=== PATIENT | male | born 1965 | race Caucasian/White ===

== ENCOUNTER 2020-03-27 08:46 | Observation (INO) | payer OTHER ==
[2020-03-27] MEDS ORDERED: SODIUM CHLORIDE 0.9% 1,000 ML IV STA (09:08)
[2020-03-27] MEDS ORDERED: LABETALOL 5 MG/ML VIAL MDV IVP STA (09:08)
--- NOTE | 2020-03-27 09:11 | ED ---
General Adult HPI - General Chief complaint: Dizziness Stated complaint: dizzy,not feeling right Time Seen by Provider: 03/27/20 08:53 Source: patient Mode of arrival: wheelchair Limitations: no limitations - History of Present Illness Initial comments: Dictation was produced using [employer] dictation software. please excuse any grammatical, word or spelling errors. This patient was cared for during a federal and state declared state of emergency secondary to Covid 19 Chief Complaint: 54-year-old male presents with dizziness. History of Present Illness: 54-year-old male who presents today with dizziness. Patient states that he has a history of hypertension. He was prescribed antihypertensive medications several months ago however he does not take them. Patient states that last night he was over at a friend's house and had several cocktails. Patient states that on his way home he felt very dizzy. He woke this morning his dizziness has improved. Denies any neurologic deficits. No numbness and paresthesias to the arms or legs. He denies any pain complaints. Denies any headaches. Denies any fever, coughs or chills. Denies sensation of the room spinning. His dizziness is constant. Denies any shortness of breath. No vomiting. The ROS documented in this emergency department record has been reviewed and confirmed by me. Those systems with pertinent positive or negative responses have been documented in the HPI. All other systems are other negative and/or noncontributory. PHYSICAL EXAM: General Impression: Alert and oriented x3, not in acute distress HEENT: Normocephalic atraumatic, extra-ocular movements intact, pupils equal and reactive to light bilaterally, mucous membranes moist. Cardiovascular: Heart regular rate and rhythm Chest: Able to complete full sentences, no retractions, no tachypnea, bilateral breath sounds Abdomen: abdomen soft, non-tender, non-distended, no organomegaly Musculoskeletal: Pulses present and equal in all extremities, no peripheral edema Motor: no focal deficits noted Neurological: CN II-XII grossly intact, no focal motor or sensory deficits noted Skin: Intact with no visualized rashes Psych: Normal affect and mood ED course: 54 y Old male presents with dizziness. Patient had several alcoholic beverages last night before the onset of his symptoms. As upon arrival shows blood pressure of 241/137, rest of vital signs within acceptable limits. Clinical presentation concerning for symptomatic hypertension. Patient is given labetalol IV push. Laboratory evaluation was obtained. Results were reviewed during EMR down time. CT and chest x-ray are unremarkable. Patient reevaluated at bedside and found to be stable medical condition. Clinical presentation consistent with hypertensive urgency. Patient doesn't report that he feels better however still kind of dizzy. Clinical presentation consistent with symptomatic hypertension. started hydrochl orothiazide. He does have orders for when necessary labetalol. Case discussed with Dr. Marshall who willing to accept patient. EKG interpretation: Ventricular rate 100, normal sinus rhythm,. 162, QRS 128, QTC 492. No [place] prolongation, no QTC prolongation, no ST or T-wave changes noted. No old EKG for comparison Overall, this EKG is unremarkable - Related Data Home Medications Medication Instructions Recorded Confirmed No Known Home Medications 03/27/20 03/27/20 Allergies Allergy/AdvReac Type Severity Reaction Status Date / Time No Known Allergies Allergy Verified 03/27/20 12:19 Review of Systems ROS Statement: Those systems with pertinent positive or pertinent negative responses have been documented in the HPI. ROS Other: All systems not noted in ROS Statement are negative. Past Medical History Past Medical History: Hypertension Past Surgical History: Ear Surgery, Tonsillectomy Past Psychological History: No Psychological Hx Reported Smoking Status: Never smoker Past Alcohol Use History: Daily Past Drug Use History: Marijuana General Exam Limitations: no limitations Course Vital Signs 03/27/20 08:46 Temperature 97.5 F L Pulse Rate 108 H Respiratory 18 Rate Blood Pressure 241/137 O2 Sat by Pulse 97 Oximetry Disposition Clinical Impression: Hypertensive urgency Disposition: ADMITTED IP TO THIS [facility] Condition: Fair Referrals: None,Stated [Primary Care Provider] - 1-2 days Decision Time: 12:27
--- NOTE | 2020-03-27 09:45 | CT ---
EXAMINATION TYPE: CT brain wo con DATE OF EXAM: 03/27/2020 COMPARISON: None INDICATION: Dizziness, HTN DLP: 1162.4 mGycm, Automated exposure control for dose reduction was used. CONTRAST: None CT of the brain is performed utilizing 3 mm thick sections through the posterior fossa and 3 mm thick sections through the remaining calvarium. Study is performed within 24 hours of arrival to the hosp ital. No abnormal hyperdensity is present to suggest an acute intracranial hemorrhage. No mass lesion is evident. No acute infarcts are evident. Mild patchy hypodensities in the periventricular white matter, likely on the basis of chronic white matter ischemic changes. Ventricles and sulci are appropriate for the patient age. Paranasal sinuses and mastoid air cells within the [id number] are clear. IMPRESSIONS: 1. Mild chronic appearing periventricular white matter ischemic changes. 2. No acute intracranial process.
--- NOTE | 2020-03-27 10:10 | XR ---
EXAMINATION TYPE: XR chest 1V DATE OF EXAM: 03/27/2020 COMPARISON: None INDICATION: Dizzy TECHNIQUE: Single frontal view of the chest is obtained. FINDINGS: The heart size is moderately prominent. The pulmonary vasculature is normal. The lungs are clear. IMPRESSION: 1. Cardiomegaly. 2. No acute pulmonary process.
[2020-03-27] MEDS ORDERED: SODIUM CHLORIDE 0.9% 1,000 ML BAG ONE (12:28)
[2020-03-27] MEDS ORDERED: LABETALOL 5 MG/ML VIAL MDV ONE (12:28)
[2020-03-27] MEDS ORDERED: SODIUM CHLORIDE 0.9% 1,000 ML IV SCH (12:30)
[2020-03-27 12:50] LABS: ALT 26 U/L (4-49); AST 32 U/L (17-59); African American GFR (CKD) >90 (>60 ml/min/1.73 sqM); Albumin 4.8 g/dL (3.5-5.0); Alcohol <10 mg/dL; Alkaline Phosphatase 98 U/L (38-126); Anion Gap 11 mmol/L; Blood Urea Nitrogen 13 mg/dL (9-20); Calcium 9.4 mg/dL (8.4-10.2); Carbon Dioxide 25 mmol/L (22-30); Chloride 101 mmol/L (98-107); Glucose 143 mg/dL (74-99); Magnesium 2.1 mg/dL (1.6-2.3); Non-African American GFR(CKD) >90 (>60 ml/min/1.73 sqM); Potassium 4.1 mmol/L (3.5-5.1); Sodium 137 mmol/L (137-145); Total Bilirubin 0.7 mg/dL (0.2-1.3); Total Protein 7.5 g/dL (6.3-8.2)
[2020-03-27 14:02] LABS: Basophils # (A) 0.1 k/uL (0-0.2); Basophils % (A) 1 %; Eosinophils # (A) 0.2 k/uL (0-0.7); Eosinophils % (A) 2 %; HCT 50.5 % (39.0-53.0); HGB 17.5 gm/dL (13.0-17.5); Lymphocytes # (A) 2.4 k/uL (1.0-4.8); Lymphocytes % (A) 25 %; MCH 31.3 pg (25.0-35.0); MCHC 34.6 g/dL (31.0-37.0); MCV 90.6 fL (80.0-100.0); Monocytes # (A) 0.6 k/uL (0-1.0); Monocytes % (A) 6 %; Neutrophils % (A) 64 %; Platelet Count 264 k/uL (150-450); RBC 5.57 m/uL (4.30-5.90); RDW 13.6 % (11.5-15.5); WBC 9.5 k/uL (3.8-10.6)
[2020-03-27 14:04] LABS: Prothrombin Time 10.4 sec (9.0-12.0)
[2020-03-27] MEDS ORDERED: hydroCHLOROthiazide 25 MG TAB PO ONE (14:30)
--- NOTE | 2020-03-27 18:20 | P.HPIM ---
History of Present Illness H&P Date: 03/27/20 Chief Complaint: Hypertensive urgency 54-year-old male with PMH of hypertension presents the ED for double vision. Patient reports having some cocktails last night and going to sleep. He woke up this morning with double vision. Patient reports horizontal double vision. P atient realizes that this might be related to his blood pressure which prompted him to come to the ED. He was diagnosed with hypertension in 2016 and was started on unknown antihypertensive medication. He stopped taking his medication 1-1/2 years ago. Patient denies any headache, lower extremity edema, nausea or vomiting, fever or chills, cough, chest pain, shortness of breath, palpitations, changes in urination or bowel habits. No changes in appetite or weight. He denies any dizziness, numbness/weakness/tingling of the extremities. In the ED, his blood pressure was 241/137. CBC was unremarkable. INR was negative. CMP was negative except glucose of 143. Troponin was 0.014, EKG show ing normal sinus rhythm. Serum alcohol was negative. Chest x-ray was negative. Brain CT showed no acute intracranial process. Patient is admitted for hypertensive urgency. Review of Systems Pertinent positives and negatives as discussed in HPI, a complete review of systems was performed and all other systems are negative. Past Medical History Past Medical History: Hypertension Additional Past Medical History / Comment(s): Past cellulitis bilateral legs History of Any Multi-Drug Resistant Organisms: None Reported Past Surgical History: Ear Surgery, Tonsillectomy Additional Past Surgical History / Comment(s): Bilateral myringotomies/tubes Past Anesthesia/Blood Transfusion Reactions: No Reported Reaction Smoking Status: Never smoker - Past Family History Father Family Medical History: Dementia Mother Family Medical History: CVA/TIA Additional Family Medical History / Comment(s): Mother is . She had TIAs. Medications and Allergies Home Medications Medication Instructions Recorded Confirmed Type No Known Home Medications 03/27/20 03/27/20 History Allergies Allergy/AdvReac Type Severity Reaction Status Date / Time No Known Allergies Allergy Verified 03/27/20 12:19 Physical Exam Vitals: Vital Signs Temp Pulse Resp BP Pulse Ox 03/27/20 14:42 95 18 189/132 96 03/27/20 14:00 18 96 03/27/20 13:00 95 18 189/132 96 03/27/20 12:00 95 18 96 03/27/20 11:52 95 18 178/121 96 03/27/20 10:52 99 18 183/124 96 03/27/20 09:52 96 18 189/125 96 03/27/20 08:52 98 18 195/123 96 03/27/20 08:46 97.5 F L 108 H 18 241/137 97 Intake and Output 03/27/20 03/27/20 03/27/20 06:59 14:59 22:59 Other: Weight 140.614 kg General: [non toxic], [no distress], [appears at stated age] Derm: [warm], [dry] Head: [atraumatic], [normocephalic], [symmetric] Eyes: [EOMI], [no lid lag], [anicteric sclera] Mouth: [no lip lesion], [mucus membranes moist] Cardiovascular: [S1S2 reg], [no murmur], [positive posterior tibial pulse bilateral], Lungs: [CTA bilateral], [no rhonchi, no rales] , [no accessory muscle use] Abdominal: [soft], [ nontender to palpation], [no guarding], [no appreciable organomegaly] Ext: [no gross muscle atrophy], [no edema], [no contractures] Neuro: [ CN II-XI grossly intact], [no focal neuro deficits] Psych: [Alert], [oriented], [appropriate affect] Results CBC & Chem 7: 03/27/20 09:04 03/27/20 09:04 Labs: Abnormal Lab Results - Last 24 Hours (Table) 03/27/20 Range/Units 09:04 Glucose 143 H (74-99) mg/dL Thrombosis Risk Factor Assmnt - Choose All That Apply Any of the Below Risk Factors Present?: Yes Each Factor Represents 1 point: Age 41-60 years, Obesity (BMI >25) Other Risk Factors: No Other congenital or acquired thrombophilia - If yes, enter type in comment: No Thrombosis Risk Factor Assessment Total Risk Factor Score: 2 Thrombosis Risk Factor Assessment Level: Low Risk Assessment and Plan Assessment: Hypertensive urgency Double vision Hyperglycemia History of alcohol use Patient's initial blood pressure was 241/137. His blood pressure has improved to 170s over 130s. He was given labetalol 20 mg IV in the ED. He'll be started on hydrochlorothiazide, lisinopril and Coreg. Labetalol is ordered as needed for SBP greater than 180. He will be placed on telemetry monitoring and echoc ardiogram has been ordered for tomorrow morning. His double vision is likely related to his elevated blood pressures. I anticipate his vision to improve with better blood pressure control. Consider ophthalmology consultation if continued tomorrow morning. Patient has blood glucose of 143 nonfasting which will be monitored at this time. Patient reports drinking 2-3 times a week. He denies any alcohol withdrawal symptoms will continue to monitor for any signs of withdrawal. DVT prophylaxis: [SCD boots] Discussed with: [Patient] Anticipated discharge: [1-2 days] Anticipated discharge place: [Home] A total of [35] minutes was spent on the care of this complex patient more than 50% of the time was spent in counseling and care coordination. Patient names his sister Kimberlyn decision maker if he can't make decisions for himself. Patient would like to be full code.
[2020-03-27] MEDS ORDERED: carvediloL 12.5 MG TAB PO SCH (20:00)
[2020-03-27] MEDS ORDERED: ACETAMINOPHEN TAB 325 MG TAB PO PRN ×2 (21:14→23:00)
[2020-03-27] MEDS ORDERED: NALOXONE 0.4 MG/ML 1 ML VIAL IV PRN ×2 (21:15→23:00)
[2020-03-27] MEDS ORDERED: oxyCODONE-APAP 5-325MG 1 EACH TAB PO PRN ×2 (21:16→23:00)
[2020-03-27] MEDS ORDERED: lisinopriL 10 MG TAB PO SCH (21:30)
[2020-03-27] MEDS ORDERED: LABETALOL 5 MG/ML VIAL MDV IVP PRN (23:00)
[2020-03-28 03:38] LABS: HCT 45.9 % (39.0-53.0); HGB 15.7 gm/dL (13.0-17.5); MCH 31.5 pg (25.0-35.0); MCHC 34.2 g/dL (31.0-37.0); MCV 92.3 fL (80.0-100.0); Mean Platelet Volume 7.8; Platelet Count 243 k/uL (150-450); RBC 4.98 m/uL (4.30-5.90); RDW 13.7 % (11.5-15.5); WBC 9.6 k/uL (3.8-10.6)
[2020-03-28] MEDS: LABETALOL 5 MG/ML VIAL MDV IV PRN ×2 (03:50→11:47)
[2020-03-28] MEDS: SODIUM CHLORIDE 0.9% 1,000 ML IV SCH ×2 (06:31→20:31)
[2020-03-28] MEDS: carvediloL 12.5 MG TAB PO SCH ×3 (06:32→17:12)
[2020-03-28] MEDS: hydroCHLOROthiazide 25 MG TAB PO SCH (08:27)
[2020-03-28] MEDS ORDERED: lisinopriL 10 MG TAB PO SCH (09:00)
[2020-03-28] MEDS ORDERED: hydroCHLOROthiazide 25 MG TAB PO SCH (09:00)
--- NOTE | 2020-03-28 11:00 | ECHOF ---
Referral Reason:HTN urgency MEASUREMENTS -------- HEIGHT: 180.3 cm WEIGHT: 140.6 kg BP: 145/77 RVIDd: 3.6 cm (< 3.3) IVSd: 1.9 cm (0.6 - 1.1) LVIDd: 4.9 cm (3.9 - 5.3) LVPWd: 1.7 cm (0.6 - 1.1) IVSs: 2.3 cm LVIDs: 3.8 cm LVPWs: 2.0 cm LA Diam: 3.5 cm (2.7 - 3.8) LAESV Index (A-L): 25.70 ml/m Ao Diam: 4.1 cm (2.0 - 3.7) AV Cusp: 2.6 cm (1.5 - 2.6) MV EXCURSION: 14.837 mm (> 18.000) MV EF SLOPE: 55 mm/s (70 - 150) EPSS: 1.1 cm MV E Aleks: 0.99 m/s MV DecT: 190 ms MV A Aleks: 0.82 m/s MV E/A Ratio: 1.21 FINDINGS -------- Sinus rhythm. This was a technically adequate study. The left ventricular size is normal. There is severe concentric left ventricular hypertrophy. Ove rall left ventricular systolic function is normal with, an EF between 55 - 60 %. The right ventricle is mildly enlarged. Normal LA size by volume 22+/-6 ml/m2. The right atrial size is normal. Interatrial and interventricular septum intact. The aortic valve is trileaflet, and appears structurally normal. No aortic stenosis or regurgitation. The mitral valve is normal. No mitral regurgitation. The tricuspid valve appears structurally normal. Trace tricuspid regurgitation present. The pulmonic valve was not well visualized. There is no pulmonic regurgitation present. The aortic root is dilated measuring 4.1cm. Normal inferior vena cava with normal inspiratory collapse consistent with estimated right atrial pre ssure of 5 mmHg. There is no pericardial effusion. CONCLUSIONS -------- 1. There is severe concentric left ventricular hypertrophy. 2. Overall left ventricular systolic function is normal with, an EF between 55 - 60 %. 3. The right ventricle is mildly enlarged. 4. Normal LA size by volume 22+/-6 ml/m2. 5. The aortic valve is trileaflet, and appears structurally normal. No aortic stenosis or regurgitati on. 6. The mitral valve is normal. 7. Trace tricuspid regurgitation present. 8. The aortic root is dilated measuring 4.1cm. 9. There is no pericardial effusion. BALLOON TESTER: Olivia Gutierrez RDCS
[2020-03-28] MEDS ORDERED: hydrALAZINE HCL 20 MG/ML 1 ML VIAL IVP PRN (12:23)
--- NOTE | 2020-03-28 12:27 | P.PN ---
Subjective Progress Note Date: 03/28/20 Patient is feeling well today. He said that his double vision has resolved. He denies any headache. Objective - Vital Signs Vital signs: Vital Signs Temp 97.7 F 03/28/20 11:46 Pulse 75 03/28/20 11:46 Resp 16 03/28/20 11:46 BP 182/104 03/28/20 11:46 Pulse Ox 98 03/28/20 11:46 Intake & Output 03/27/20 03/28/20 03/28/20 18:59 06:59 18:59 Intake Total 240 Balance 240 Weight 140.614 kg 140.4 kg Intake: Oral 240 Other: # Voids 1 1 - Exam General: The patient is awake and alert, in no distress Eye: there is normal conjunctiva bilaterally. Neck: The neck is supple, there is no JVD. Cardiovascular: Normal S1-S2, no S3-S4, no murmurs. Respiratory: Lungs clear to auscultation bilaterally Gastrointestinal: Abdomen is soft, nontender Musculoskeletal: There is no pedal edema. Neurological:. Speech is normal. Skin: Skin is warm and dry - Labs CBC & Chem 7: 03/28/20 03:00 03/27/20 09:04 Labs: Abnormal Lab Results - Last 24 Hours (Table) 03/27/20 Range/Units 09:04 Glucose 143 H (74-99) mg/dL Assessment and Plan Assessment: Hypertensive urgency Double vision, resolved. Computed tomography scan of the head with no acute intracranial finding Hyperglycemia History of alcohol use Patient's initial blood pressure was 241/137. Continue to have systolic blood pressure over 170 and diastolic over 100. Started on hydrochlorothiazide 25 mg daily, lisinopril 10 mg daily and Coreg 12.5 mg twice a day. Increase lisinopril dose to 10 mg twice a day and Coreg to 25 mg twice a day Patient has blood glucose of 143 nonfasting which will be monitored at this time. I would order A1c Patient reports drinking 2-3 times a week. He denies any alcohol withdrawal symptoms will continue to monitor for any signs of withdrawal. Continue current management otherwise. Anticipate discharge home tomorrow.
[2020-03-28] MEDS: lisinopriL 10 MG TAB PO SCH (20:31)
[2020-03-28 21:30] LABS: Hemoglobin A1C 6.2 % (4.0-6.0)
[2020-03-29] MEDS: carvediloL 12.5 MG TAB PO SCH (06:02)
[2020-03-29] MEDS: lisinopriL 10 MG TAB PO SCH (08:05)
[2020-03-29] MEDS: hydroCHLOROthiazide 25 MG TAB PO SCH (08:05)
--- NOTE | 2020-03-29 09:04 | P.DS ---
Providers Date of admission: 03/27/20 12:23 Expected date of discharge: 03/29/20 Attending physician: Mia Rivera DO Primary care physician: Stated None Hospital Course: This is a 54-year-old male who presented to the emergency room urgently with dizziness and double vision. Patient was evaluated in the ER and was found to have a blood pressure of 241/137. Patient was admitted to the hospital for further management of his medical problems noted below. -Hypertensive urgency: Blood pressure improved. Patient will be discharged home on Coreg 25 mg twice a day, lisinopril 10 mg twice daily, and hydrochlorothiazide 25 mg daily. He was advised to check his blood pressure up to 3 times a day. Follow-up with PCP in the next 3-5 days. -Double vision, resolved. Computed tomography scan of the head with no acute intracranial finding -Hyperglycemia with prediabetes, A1c 6.2: Counseled regarding lifestyle modification and exercise - History of alcohol use Patient will be discharged home in a stable condition. For further details about this hospitalization please refer to the electronic chart. Patient Condition at Discharge: Fair Plan - Discharge Summary Discharge Rx Participant: No New Discharge Prescriptions: New Carvedilol 25 mg PO BID #60 tablet Hydrochlorothiazide [Hydrodiuril] 25 mg PO DAILY #30 tab Lisinopril [Zestril] 10 mg PO BID #60 tab Discharge Medication List Carvedilol 25 mg PO BID #60 tablet 03/29/20 [Rx] Hydrochlorothiazide [Hydrodiuril] 25 mg PO DAILY #30 tab 03/29/20 [Rx] Lisinopril [Zestril] 10 mg PO BID #60 tab 03/29/20 [Rx] Follow up Appointment(s)/Referral(s): None,Stated [Primary Care Provider] - 1-2 days Discharge Disposition: HOME SELF-CARE
[2020-03-29 09:20] VITALS: PULSE 71; RESP 18; TEMP 97.7
[2020-03-29 10:16] VITALS: BP 152/95
== END 2020-03-29 13:08 | disposition home or self-care (01) ==
LOC: EC 08:46 → 3SCARD 12:23
PROVIDERS: ADMIT Internal Medicine; ATTEND Internal Medicine
DX: I16.0 Hypertensive urgency (principal); I11.9 Hypertensive heart disease without heart failure; R73.03 Prediabetes; E66.9 Obesity, unspecified; Z68.41 Body mass index [BMI] 40.0-44.9, adult; H53.2 Diplopia; Z03.818 Encounter for observation for suspected exposure to other biological agents ruled out; Z91.14 Patient's other noncompliance with medication regimen; Z86.19 Personal history of other infectious and parasitic diseases; Z82.3 Family history of stroke; Z81.8 Family history of other mental and behavioral disorders
CPT/HCPCS: 96376; 96374; 99285; 36415; 93005; 93306; 80053; 83735 ×2; 84484 ×2; 85025; 85027; 85610; 85730; 83036; 71045; 70450; G0378 ×3; G0480; U0003; 80320

== ENCOUNTER 2024-11-13 11:00 | Inpatient (IN) | payer OTHER ==
--- NOTE | 2024-11-13 11:42 | ED ---
Weakness HPI - General Source: patient, RN notes reviewed Mode of arrival: ambulatory Limitations: no limitations - History of Present Illness MD Complaint: generalized weakness Onset/Timin -: days(s) <Jagdish Perez - Last Filed: 11/13/24 13:49> <Anand Mullen - Last Filed: 11/18/24 03:28> - General Chief complaint: Weakness Stated complaint: high blood pressure Time Seen by Provider: 11/13/24 11:16 - History of Present Illness Initial comments: This is a 59-year-old male with history of hypertension presenting for elevated blood pressure and weakness x 3 days. Patient states he was originally seen at urgent care and advised to go to ER due to uncontrolled blood pressure. Patient endorses associated fatigue, dyspnea with exertion and poor sleep. Patient states he sleeps in a chair at night as well. States he is not currently taking any medication for hypertension. Denies history of AMI or CAD. Denies fever, chills, cough, chest pain, headache, hemoptysis, abdominal pain, N/V/D. (Jagdish Sidhu) - Related Data Previous Rx's Medication Instructions Recorded Aspirin 81 mg PO DAILY #30 tab 11/15/24 Atorvastatin [Lipitor] 80 mg PO HS #30 tab 11/15/24 Metoprolol Tartrate [Lopressor] 50 mg PO BID #60 tab 11/15/24 Spironolactone [Aldactone] 50 mg PO DAILY #60 tab 11/15/24 Ticagrelor [Brilinta] 90 mg PO BID #60 tab 11/15/24 glipiZIDE [Glucotrol] 2.5 mg PO AC-BID #60 tab 11/15/24 hydrALAZINE HCL [Apresoline] 100 mg PO TID #90 tab 11/15/24 lisinopriL [Zestril] 40 mg PO DAILY #60 tab 11/15/24 Allergies Allergy/AdvReac Type Severity Reaction Status Date / Time No Known Allergies Allergy Verified 11/13/24 13:07 Review of Systems ROS Other: All systems not noted in ROS Statement are negative. <Jagdish Perez - Last Filed: 11/13/24 13:49> ROS Other: All systems not noted in ROS Statement are negative. <Anand Mullen - Last Filed: 11/18/24 03:28> ROS Statement: Those systems with pertinent positive or pertinent negative responses have been documented in the HPI. Past Medical History Past Medical History: Hypertension Additional Past Medical History / Comment(s): Past cellulitis bilateral legs History of Any Multi-Drug Resistant Organisms: None Reported Past Surgical History: Ear Surgery, Tonsillectomy Additional Past Surgical History / Comment(s): Bilateral myringotomies/tubes Past Anesthesia/Blood Transfusion Reactions: No Reported Reaction Past Psychological History: No Psychological Hx Reported Past Alcohol Use History: Occasional Past Drug Use History: Marijuana - Past Family History Father Family Medical History: Dementia Mother Family Medical History: CVA/TIA Additional Family Medical History / Comment(s): Mother is . She had TIAs. <Jagdish Perez - Last Filed: 11/13/24 13:49> General Exam Limitations: no limitations General appearance: alert, in no apparent distress, obese Head exam: Present: atraumatic, normocephalic, normal inspection Eye exam: Present: normal appearance, PERRL, EOMI. Absent: scleral icterus, conjunctival injection, periorbital swelling ENT exam: Present: normal exam, normal oropharynx, mucous membranes moist Neck exam: Present: normal inspection. Absent: tenderness, meningismus, lymphadenopathy Respiratory exam: Present: decreased breath sounds. Absent: respiratory distress, wheezes, rales, rhonchi, stridor Cardiovascular Exam: Present: regular rate, normal rhythm, normal heart sounds. Absent: systolic murmur, diastolic murmur, rubs, gallop, clicks GI/Abdominal exam: Present: soft, normal bowel sounds. Absent: distended, tenderness, guarding, rebound, rigid Extremities exam: Present: full ROM, normal capillary refill, pedal edema (Bilateral pitting edema extending to knees), other (Bilateral posterior tibialis pulse +2). Absent: tenderness, joint swelling, calf tenderness Back exam: Present: normal inspection Neurological exam: Present: alert, oriented X3, CN II-XII intact Psychiatric exam: Present: normal affect, normal mood Skin exam: Present: warm, dry, intact, normal color. Absent: rash <Jagdish Perez - Last Filed: 11/13/24 13:49> Course <Jagdish Perez - Last Filed: 11/13/24 13:49> Vital Signs 11/13/24 11/13/24 11/13/24 11:09 11:59 12:43 Temperature 97.6 F Pulse Rate 94 95 109 H Respiratory 20 18 18 Rate Blood Pressure 248/138 204/136 206/119 O2 Sat by Pulse 98 98 98 Oximetry 11/13/24 11/13/24 11/13/24 13:42 14:12 14:36 Temperature Pulse Rate 110 H 103 H 103 H Respiratory 24 18 18 Rate Blood Pressure 199/114 179/108 197/103 O2 Sat by Pulse 99 98 Oximetry - Reevaluation(s) Reevaluation #1: Authorized for ICU admission by Dr. Negron 11/13/24 13:47 (Jagdish Perez) Medical Decision Making - Lab Data Result diagrams: 11/13/24 11:46 11/13/24 11:46 <Jagdish Perez - Last Filed: 11/13/24 13:49> - Lab Data Result diagrams: 11/14/24 05:30 11/15/24 05:31 - EKG Data -: EKG Interpreted by Me <Anand Mullen - Last Filed: 11/18/24 03:28> - Medical Decision Making Was pt. sent in by a medical professional or institution (, PA, VISUALIZATION DEVELOPER, urgent care, hospital, or assisted...) When possible be specific @ -No Did you speak to anyone other than the patient for history (EMS, parent, family, police, friend...)? What history was obtained from this source @ -No Did you review nursing and triage notes (agree or disagree)? Why? @ -I reviewed and agree with nursing and triage notes Were old charts reviewed (outside hosp., previous admission, EMS record, old EKG, old radiological studies, urgent care reports/EKG's, assisted records)? Report findings @ -No old charts were reviewed Differential Diagnosis (chest pain, altered mental status, abdominal pain women, abdominal pain men, vaginal bleeding, weakness, fever, dyspnea, syncope, head ache, dizziness, GI bleed, back pain, seizure, CVA, palpatations, mental health, musculoskeletal)? @ -Differential Weakness: Hypoglycemia, shock, sepsis, hyponatremia, anemia, infection, [place], ETOH, adverse medicine reaction, overdose, stroke, this is not meant to be an all-inclusive list. EKG interpreted by me (3pts min.). @ -Sinus rhythm with LAD, right ventricular conduction delay and possible inferior and anterolateral ST elevation. Ventricular rate 96 bpm, MAYLIN 191 ms, QRS duration 129 ms, QTc 436 ms. X-rays interpreted by me (1pt min.). @ -CXR shows mild bilateral plate atelectasis and cardiomegaly with indications of COPD. CT interpreted by me (1pt min.). @ -None done U/S interpreted by me (1pt. min.). @ -None done What testing was considered but not performed or refused? (CT, X-rays, U/S, labs)? Why? @ -None What meds were considered but not given or refused? Why? @ -None Did you discuss the management of the patient with other professionals (professionals i.e. , PA, VISUALIZATION DEVELOPER, lab, RT, psych nurse, social worker assistant, spring manufacturing set up technician, teacher, [place] police officer, showcase maker)? Give summary @ - Contacted Dr. Carnes, Dr. Gary who are aware of patient. Received approval by Dr. Hollis for ICU admission. Was smoking cessation discussed for >3mins.? @ -No Was critical care preformed (if so, how long)? @ -No Were there social determinants of health that impacted care today? How? (Homelessness, low income, unemployed, alcoholism, drug addiction, tr ansportation, low edu. Level, literacy, decrease access to med. care, group home, rehab)? @ -No Was there de-escalation of care discussed even if they declined (Discuss DNR or withdrawal of care, Hospice)? DNR status @ -No What co-morbidities impacted this encounter? (DM, HTN, Smoking, COPD, CAD, Cancer, CVA, ARF, Chemo, Hep., AIDS, mental health diagnosis, sleep apnea, morbid obesity)? @ -None Was patient admitted / discharged? Hospital course, mention meds given and route, prescriptions, significant lab abnormalities, going to OR and other pertinent info. @ -Lab work shows elevated troponin 1.130, BNP 1940 and hyperglycemia 152. Otherwise unremarkable with negative Cepheid test. CXR shows mild bilateral plate atelectasis and cardiomegaly with indications of COPD. Patient initially provided IV hydralazine for blood pressure. IV heparin, IV nitroglycerin and p.o. aspirin provided upon discovery of elevated troponin. Contacted Dr. Carnes, Dr. Gary who are aware of patient. Received approval by Dr. Hollis for ICU admission. Discussed patient with Dr. Mullen. Undiagnosed new problem with uncertain prognosis? @ -Elevated troponin Drug Therapy requiring intensive monitoring for toxicity (Heparin, Nitro, Insulin, Cardizem)? @ -No Were any procedures done? @ -No Diagnosis/symptom? @ -Elevated troponin, hypertensive emergency Acute, or Chronic, or Acute on Chronic? @ -Acute Uncomplicated (without systemic symptoms) or Complicated (systemic symptoms)? @ -Complicated Side effects of treatment? @ -No Exacerbation, Progression, or Severe Exacerbation? @ -Severe exacerbation Poses a threat to life or bodily function? How? (Chest pain, [place], [place], pneumonia, PE, COPD, DKA, ARF, appy, cholecystitis, CVA, Diverticulitis, Homicidal, Suicidal, threat to staff... and all critical care pts) @ -Elevated troponin, hypertensive emergency -heart failure and endorgan damage (Jagdish Perez) I was notified of the results with the patient. Initial EKG shows conduction delay. Was being seen by midlevel provider. Laboratory studies returned remarkable for troponin with 1.13. Patient's BNP slightly elevated to 1900. At this time I did instruct Vik the midlevel provider to initiate the patient on antihypertensive medication, administer aspirin, and obtain a repeat EKG. We also initiate heparin therapy at this time. Repeat EKG shows worsening ST segment elevations in the lateral precordial leads and inferior somewhat. No reciprocal changes. I do not believe this meet STEMI criteria at this time. I did discuss the case with cardiology Dr. Gary who did review the EKGs and was in agreement this plan and was in agreement with the assessment that patient did not meet stemi criteria at this time. Cardiology did obtain a D-dimer which was elevated but after they evaluated the patient at bedside, determined that it is less likely to be a PE based on echo that they were seeing at bedside and recommended admission for Operators Teacher. Patient was in agreement this plan. Patient was initiated on a nitro drip throughout the stay as well. I discussed the case multiple times with Dr. Gary as well as Joan from cardiology. Was critical care preformed (if so, how long)? @ -yes, 36 minutes (Anand Mullen) - Lab Data Lab Results 11/13/24 11/13/24 11/13/24 Range/Units 11:46 11:46 11:46 WBC 9.5 (3.8-10.6) k/uL RBC 5.61 (4.30-5.90) m/uL Hgb 16.4 (13.0-17.5) gm/dL Hct 50.9 (39.0-53.0) % MCV 90.7 (80.0-100.0) fL MCH 29.2 (25.0-35.0) pg MCHC 32.2 (31.0-37.0) g/dL RDW 12.8 (11.5-15.5) % Plt Count 293 (150-450) k/uL MPV 7.9 Neutrophils % 71 % Lymphocytes % 20 % Monocytes % 6 % Eosinophils % 1 % Basophils % 1 % Neutrophils # 6.7 (1.3-7.7) k/uL Lymphocytes # 1.9 (1.0-4.8) k/uL Monocytes # 0.6 (0-1.0) k/uL Eosinophils # 0.1 (0-0.7) k/uL Basophils # 0.1 (0-0.2) k/uL PT 11.1 (10.0-12.5) sec INR 1.0 (<1.2) APTT 23.7 (22.0-30.0) sec D-Dimer (<0.60) mg/L FEU Sodium 137 (137-145) mmol/L Potassium 4.5 (3.5-5.1) mmol/L Chloride 101 (98-107) mmol/L Carbon Dioxide 27 (22-30) mmol/L Anion Gap 9 mmol/L BUN 13 (9-20) mg/dL Creatinine 0.92 (0.66-1.25) mg/dL Est GFR (CKD-EPI)AfAm >90 (>60 ml/min/1.73 sqM) Est GFR (CKD-EPI)NonAf >90 (>60 ml/min/1.73 sqM) Glucose 152 H (74-99) mg/dL Estimated Ave Glu mg/dL mg/dL Hemoglobin A1c (<=6.0) % Plasma Lactic Acid Scooter (0.7-2.0) mmol/L Calcium 9.4 (8.4-10.2) mg/dL Magnesium 2.0 (1.6-2.3) mg/dL Total Bilirubin 0.9 (0.2-1.3) mg/dL AST 39 (17-59) U/L ALT 53 H (4-49) U/L Alkaline Phosphatase 73 (38-126) U/L Troponin I (0.000-0.034) ng/mL NT-Pro-B Natriuret Pep 1940 pg/mL Total Protein 7.0 (6.3-8.2) g/dL Albumin 4.3 (3.5-5.0) g/dL Triglycerides (0.00-149.00) mg/dL Cholesterol (0.00-200.00) mg/dL LDL Cholesterol, Calc (0.0-131.0) mg/dL VLDL Cholesterol, Calc (5.00-40.00) mg/dL HDL Cholesterol (40.00-60.00) mg/dL Cholesterol/HDL Ratio Ratio TSH (0.465-4.680) mIU/L Influenza Type A (PCR) (Not Detectd) Influenza Type B (PCR) (Not Detectd) RSV (PCR) (Not Detectd) SARS-CoV-2 (PCR) (Not Detectd) 11/13/24 11/13/24 11/13/24 Range/Units 11:46 11:46 11:46 WBC (3.8-10.6) k/uL RBC (4.30-5.90) m/uL Hgb (13.0-17.5) gm/dL Hct (39.0-53.0) % MCV (80.0-100.0) fL MCH (25.0-35.0) pg MCHC (31.0-37.0) g/dL RDW (11.5-15.5) % Plt Count (150-450) k/uL MPV Neutrophils % % Lymphocytes % % Monocytes % % Eosinophils % % Basophils % % Neutrophils # (1.3-7.7) k/uL Lymphocytes # (1.0-4.8) k/uL Monocytes # (0-1.0) k/uL Eosinophils # (0-0.7) k/uL Basophils # (0-0.2) k/uL PT (10.0-12.5) sec INR (<1.2) APTT (22.0-30.0) sec D-Dimer (<0.60) mg/L FEU Sodium (137-145) mmol/L Potassium (3.5-5.1) mmol/L Chloride (98-107) mmol/L Carbon Dioxide (22-30) mmol/L Anion Gap mmol/L BUN (9-20) mg/dL Creatinine (0.66-1.25) mg/dL Est GFR (CKD-EPI)AfAm (>60 ml/min/1.73 sqM) Est GFR (CKD-EPI)NonAf (>60 ml/min/1.73 sqM) Glucose (74-99) mg/dL Estimated Ave Glu mg/dL mg/dL Hemoglobin A1c (<=6.0) % Plasma Lactic Acid Scooter 1.5 (0.7-2.0) mmol/L Calcium (8.4-10.2) mg/dL Magnesium (1.6-2.3) mg/dL Total Bilirubin (0.2-1.3) mg/dL AST (17-59) U/L ALT (4-49) U/L Alkaline Phosphatase (38-126) U/L Troponin I 1.130 H* (0.000-0.034) ng/mL NT-Pro-B Natriuret Pep pg/mL Total Protein (6.3-8.2) g/dL Albumin (3.5-5.0) g/dL Triglycerides (0.00-149.00) mg/dL Cholesterol (0.00-200.00) mg/dL LDL Cholesterol, Calc (0.0-131.0) mg/dL VLDL Cholesterol, Calc (5.00-40.00) mg/dL HDL Cholesterol (40.00-60.00) mg/dL Cholesterol/HDL Ratio Ratio TSH (0.465-4.680) mIU/L Influenza Type A (PCR) Not Detected (Not Detectd) Influenza Type B (PCR) Not Detected (Not Detectd) RSV (PCR) Not Detected (Not Detectd) SARS-CoV-2 (PCR) Not Detected (Not Detectd) 11/13/24 11/13/24 11/13/24 Range/Units 11:46 11:46 11:46 WBC (3.8-10.6) k/uL RBC (4.30-5.90) m/uL Hgb (13.0-17.5) gm/dL Hct (39.0-53.0) % MCV (80.0-100.0) fL MCH (25.0-35.0) pg MCHC (31.0-37.0) g/dL RDW (11.5-15.5) % Plt Count (150-450) k/uL MPV Neutrophils % % Lymphocytes % % Monocytes % % Eosinophils % % Basophils % % Neutrophils # (1.3-7.7) k/uL Lymphocytes # (1.0-4.8) k/uL Monocytes # (0-1.0) k/uL Eosinophils # (0-0.7) k/uL Basophils # (0-0.2) k/uL PT (10.0-12.5) sec INR (<1.2) APTT (22.0-30.0) sec D-Dimer 1.30 H (<0.60) mg/L FEU Sodium (137-145) mmol/L Potassium (3.5-5.1) mmol/L Chloride (98-107) mmol/L Carbon Dioxide (22-30) mmol/L Anion Gap mmol/L BUN (9-20) mg/dL Creatinine (0.66-1.25) mg/dL Est GFR (CKD-EPI)AfAm (>60 ml/min/1.73 sqM) Est GFR (CKD-EPI)NonAf (>60 ml/min/1.73 sqM) Glucose (74-99) mg/dL Estimated Ave Glu mg/dL mg/dL Hemoglobin A1c (<=6.0) % Plasma Lactic Acid Scooter (0.7-2.0) mmol/L Calcium (8.4-10.2) mg/dL Magnesium (1.6-2.3) mg/dL Total Bilirubin (0.2-1.3) mg/dL AST (17-59) U/L ALT (4-49) U/L Alkaline Phosphatase (38-126) U/L Troponin I (0.000-0.034) ng/mL NT-Pro-B Natriuret Pep pg/mL Total Protein (6.3-8.2) g/dL Albumin (3.5-5.0) g/dL Triglycerides 107.00 (0.00-149.00) mg/dL Cholesterol 206.00 H (0.00-200.00) mg/dL LDL Cholesterol, Calc 143.4 H (0.0-131.0) mg/dL VLDL Cholesterol, Calc 21.40 (5.00-40.00) mg/dL HDL Cholesterol 41.20 (40.00-60.00) mg/dL Cholesterol/HDL Ratio 5.00 Ratio TSH 1.760 (0.465-4.680) mIU/L Influenza Type A (PCR) (Not Detectd) Influenza Type B (PCR) (Not Detectd) RSV (PCR) (Not Detectd) SARS-CoV-2 (PCR) (Not Detectd) 11/13/24 Range/Units 13:32 WBC (3.8-10.6) k/uL RBC (4.30-5.90) m/uL Hgb (13.0-17.5) gm/dL Hct (39.0-53.0) % MCV (80.0-100.0) fL MCH (25.0-35.0) pg MCHC (31.0-37.0) g/dL RDW (11.5-15.5) % Plt Count (150-450) k/uL MPV Neutrophils % % Lymphocytes % % Monocytes % % Eosinophils % % Basophils % % Neutrophils # (1.3-7.7) k/uL Lymphocytes # (1.0-4.8) k/uL Monocytes # (0-1.0) k/uL Eosinophils # (0-0.7) k/uL Basophils # (0-0.2) k/uL PT (10.0-12.5) sec INR (<1.2) APTT (22.0-30.0) sec D-Dimer (<0.60) mg/L FEU Sodium (137-145) mmol/L Potassium (3.5-5.1) mmol/L Chloride (98-107) mmol/L Carbon Dioxide (22-30) mmol/L Anion Gap mmol/L BUN (9-20) mg/dL Creatinine (0.66-1.25) mg/dL Est GFR (CKD-EPI)AfAm (>60 ml/min/1.73 sqM) Est GFR (CKD-EPI)NonAf (>60 ml/min/1.73 sqM) Glucose (74-99) mg/dL Estimated Ave Glu mg/dL 171 mg/dL Hemoglobin A1c 7.6 H (<=6.0) % Plasma Lactic Acid Scooter (0.7-2.0) mmol/L Calcium (8.4-10.2) mg/dL Magnesium (1.6-2.3) mg/dL Total Bilirubin (0.2-1.3) mg/dL AST (17-59) U/L ALT (4-49) U/L Alkaline Phosphatase (38-126) U/L Troponin I (0.000-0.034) ng/mL NT-Pro-B Natriuret Pep pg/mL Total Protein (6.3-8.2) g/dL Albumin (3.5-5.0) g/dL Triglycerides (0.00-149.00) mg/dL Cholesterol (0.00-200.00) mg/dL LDL Cholesterol, Calc (0.0-131.0) mg/dL VLDL Cholesterol, Calc (5.00-40.00) mg/dL HDL Cholesterol (40.00-60.00) mg/dL Cholesterol/HDL Ratio Ratio TSH (0.465-4.680) mIU/L Influenza Type A (PCR) (Not Detectd) Influenza Type B (PCR) (Not Detectd) RSV (PCR) (Not Detectd) SARS-CoV-2 (PCR) (Not Detectd) - EKG Data EKG Comments: 12-lead Electrocardiogram Interpretation Note EKG was reviewed and interpreted by myself. 12-lead ECG performed at 1127 is interpreted by me as revealing normal sinus rhythm with intraventricular conduction delay at a rate of 93 beats per minute. Left axis deviation. WV interval is 164 ms, QRS durations 138 ms, QTc is [address] segment elevations seen in lead II, 3 as well as lateral precordial leads V3 through V5 that do not meet STEMI activation at this time. Will continue to closely monitor.. R wave progression across the precordium was delayed. 12-lead Electrocardiogram Interpretation Note EKG was reviewed and interpreted by myself. 12-lead ECG performed at 1206 is interpreted by me as revealing normal sinus rhythm with intraventricular conduction delay at a rate of 96 beats per minute. Left axis deviation. WV interval is 191 ms, QRS duration is 129 ms, QTc is 436 ms.. Worsening of the ST segment elevations described on prior EKG. After discussion with cardiology, likely intra ventricular conduction delay. They do not believe it meet STEMI criteria. R wave progression across the precordium was delayed. 12-lead Electrocardiogram Interpretation Note EKG was reviewed and interpreted by myself. 12-lead ECG performed at 1334 is interpreted by me as revealing sinus tachycardia with intraventricular conduction delay with occasional PVC at a rate of 106 beats per minute. Left axis deviation. WV interval is 181 ms, QRS duration is 130 ms, QTc is [address] segment elevations in the inferior and lateral leads when compared with prior EKG. This EKG discussed with cardiology and reviewed by cardiology. Does not meet STEMI criteria at this time per cardiology. R wave progression across the precordium was delayed.. . (Anand Mullen) Critical Care Time Critical Care Time: Yes Total Critical Care Time: 36 <Anand Mullen - Last Filed: 11/18/24 03:28> Disposition Is patient prescribed a controlled substance at d/c from ED?: No Time of Disposition: 13:09 Decision Date: 11/13/24 Decision Time: 13:09 <Jagdish Perez - Last Filed: 11/13/24 13:49> <Anand Mullen - Last Filed: 11/18/24 03:28> Clinical Impression: Hypertensive emergency, ACS (acute coronary syndrome), Elevated troponin Disposition: ADMITTED IP TO THIS HOSP Condition: Serious
[2024-11-13] MEDS: hydrALAZINE HCL 20 MG/ML 1 ML VIAL IVP STA (12:03)
[2024-11-13 12:17] LABS: Basophils # (A) 0.1 k/uL (0-0.2); Basophils % (A) 1 %; Eosinophils # (A) 0.1 k/uL (0-0.7); Eosinophils % (A) 1 %; HCT 50.9 % (39.0-53.0); HGB 16.4 gm/dL (13.0-17.5); Lymphocytes # (A) 1.9 k/uL (1.0-4.8); Lymphocytes % (A) 20 %; MCH 29.2 pg (25.0-35.0); MCHC 32.2 g/dL (31.0-37.0); MCV 90.7 fL (80.0-100.0); Mean Platelet Volume 7.9; Monocytes # (A) 0.6 k/uL (0-1.0); Monocytes % (A) 6 %; Neutrophils # (A) 6.7 k/uL (1.3-7.7); Neutrophils % (A) 71 %; Platelet Count 293 k/uL (150-450); RBC 5.61 m/uL (4.30-5.90); RDW 12.8 % (11.5-15.5); WBC 9.5 k/uL (3.8-10.6)
--- NOTE | 2024-11-13 12:26 | XR ---
EXAMINATION TYPE: XR chest 2V DATE OF EXAM: 11/13/2024 11:57 AM COMPARISON: None. CLINICAL INDICATION: Male, 59 years old with history of Weakness, high blood pressure TECHNIQUE: XR chest 2V view(s) obtained. FINDINGS: The heart size is mildly prominent. The pulmonary vasculature is normal. Clinical history opacities are within the bilateral lung scott likely on the basis of plate atelecta sis.. Hyperinflation and flattening the diaphragms to be compatible with COPD. IMPRESSION: 1. Mild bilateral plate atelectasis and cardiomegaly. 2. COPD [facility], , 11/13/2024 12:24 PM
[2024-11-13 12:27] LABS: ALT 53 U/L (4-49); AST 39 U/L (17-59); African American GFR (CKD) >90 (>60 ml/min/1.73 sqM); Albumin 4.3 g/dL (3.5-5.0); Alkaline Phosphatase 73 U/L (38-126); Anion Gap 9 mmol/L; Blood Urea Nitrogen 13 mg/dL (9-20); Calcium 9.4 mg/dL (8.4-10.2); Carbon Dioxide 27 mmol/L (22-30); Chloride 101 mmol/L (98-107); Glucose 152 mg/dL (74-99); Non-African American GFR(CKD) >90 (>60 ml/min/1.73 sqM); Potassium 4.5 mmol/L (3.5-5.1); Sodium 137 mmol/L (137-145); Total Bilirubin 0.9 mg/dL (0.2-1.3)
[2024-11-13 12:31] LABS: Partial Thromboplastin Time 23.7 sec (22.0-30.0); Prothrombin Time 11.1 sec (10.0-12.5)
[2024-11-13 12:35] LABS: NT-Pro-B-Type Natriuretic Pept 1940 pg/mL
[2024-11-13] MEDS ORDERED: HEPARIN SODIUM 1,000 UN/ML (10ML VL) IV PRN (12:44)
[2024-11-13 12:56] LABS: Influenza A Not Detected (Not Detectd); Influenza B Not Detected (Not Detectd); RSV Not Detected (Not Detectd)
[2024-11-13] MEDS: ASPIRIN 81 MG PO STA (13:00)
[2024-11-13] MEDS: HEPARIN SODIUM 1,000 UN/ML (10ML VL) IV ONE ×2 (13:01→15:10)
[2024-11-13] MEDS: HEPARIN SOD,PORK IN 0.45% NACL 25,000 UNIT in 0.45% NACL 1 250ML.BAG IV SCH (13:02)
[2024-11-13] MEDS ORDERED: MORPHINE SULFATE 4 MG/ML SYRINGE IV PRN (13:06)
[2024-11-13] MEDS ORDERED: NALOXONE 0.4 MG/ML 1 ML VIAL IV PRN ×2 (13:06→13:45)
[2024-11-13] MEDS: NITROGLYCERIN-D5W PMX 50 MG in DEXTROSE/WATER 1 250ML.BAG IV ONE (13:17)
--- NOTE | 2024-11-13 13:36 | P.CRDCN ---
History of Present Illness Consult date: 11/13/24 Reason for Consult (text): NSTEMI History of present illness: This is a 59-year-old male with previous medical history of hypertension. He has not seen a PCP in 3 years. He gives history that he went to the urgent clinic because he has had trouble sleeping worse than usual for the last couple of days. He is having trouble laying flat along with generalized weakness and a little shortness of breath. He denies chest pain and no chest pressure. About a week ago, He did have episode of chest pain due to disagreement with friend but none now. No palpitations, no lightheadedness or dizziness. No syncopal episodes. No headache. 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 Patient presented to the ER with a blood pressure of 248/138. He was found to have an elevated troponin of 1.13. He has been started on heparin drip and is status post hydralazine 20 mg IV push. Nitroglycerin drip has been ordered. He has history of hypertension and was on multiple medications. He smokes marijuana but not tobacco. He drinks a couple beers per day. -EKG: Sinus rhythm with IVCD nonspecific ST changes. -Chest x-ray: Mild bilateral plate atelectasis and cardiomegaly. COPD. -Laboratory studies: CBC, INR, electrolytes and renal function within normal limits. Glucose 152. ALT 53. Troponin 1.13. proBNP 1940. Cepheid viral panel negative. -Home cardiac medications: None -Echocardiogram 03/2020: EF 55-60 Review Of Systems: At the time of my exam: CONSTITUTIONAL: Denies fever or chills. +Generalized fatigue HEENT: Denies blurred vision, vision changes, or eye pain. Denies hemoptysis CARDIOVASCULAR: Denies chest pain. Denies orthopnea. Denies PND. Denies palpitations RESPIRATORY: + shortness of breath. GASTROINTESTINAL: Denies abdominal pain. Denies nausea or vomiting. HEMATOLOGIC: Denies bleeding disorders. GENITOURINARY: Denies any blood in urine. SKIN: Denies puritis. Denies rash. Physical examination: Gen: This is a 59-year-old male in no acute distress. VS: reviewed HEENT: Head is atraumatic, normocephalic. Pupils equal, round. Sclerae is anicteric. NECK: Supple. No JVD. LUNGS: Clear to auscultation. No wheezes or rhonchi. No intercostal retractions. HEART: Regular rate and rhythm. No murmur. ABDOMEN: Soft No tenderness. EXTREMITIES: No pedal edema. No calf tenderness. NEUROLOGICAL: Patient is awake, alert and oriented x3. Assessment: NSTEMI Hypertensive emergency Shortness of breath and generalized weakness Marijuana use daily Daily alcohol use Elevated D-Dimer Possible KEM Plan: Continue heparin drip Continue nitroglycerin drip Monitor blood pressure closely Start patient on aspirin 81 mg daily, atorvastatin 80 mg at bedtime, metoprolol tartrate 25 mg twice daily Obtain lipid panel, A1c, TSH and free T4 Obtain 2-D echocardiogram and Doppler study to assess cardiac structure and function Patient will be scheduled for [facility] today with Dr. Gary Would recommend that patient have sleep study as an outpatient Further recommendations to follow based upon clinical course Thank you kindly for this consultation. Nurse practitioner note has been reviewed, I agree with documented findings and plan of care. Patient was seen and examined. Past Medical History Past Medical History: Hypertension Additional Past Medical History / Comment(s): Past cellulitis bilateral legs History of Any Multi-Drug Resistant Organisms: None Reported Past Surgical History: Ear Surgery, Tonsillectomy Additional Past Surgical History / Comment(s): Bilateral myringotomies/tubes Past Anesthesia/Blood Transfusion Reactions: No Reported Reaction Past Psychological History: No Psychological Hx Reported Past Alcohol Use History: Occasional Past Drug Use History: Marijuana - Past Family History Father Family Medical History: Dementia Mother Family Medical History: CVA/TIA Additional Family Medical History / Comment(s): Mother is . She had TIAs. Medications and Allergies Home Medications Medication Instructions Recorded Confirmed Type No Known Home Medications 11/13/24 11/13/24 History Allergies Allergy/AdvReac Type Severity Reaction Status Date / Time No Known Allergies Allergy Verified 11/13/24 13:07 Physical Exam Vitals: Vital Signs Temp Pulse Resp BP Pulse Ox 11/13/24 12:43 109 H 18 206/119 98 11/13/24 11:59 95 18 204/136 98 11/13/24 11:09 97.6 F 94 20 248/138 98 Intake and Output 11/12/24 11/13/24 11/13/24 22:59 06:59 14:59 Other: Weight 143.335 kg Results 11/14/24 05:30 11/14/24 05:30 Cardiac Enzymes 11/13/24 11/13/24 Range/Units 11:46 11:46 AST 39 (17-59) U/L Troponin I 1.130 H* (0.000-0.034) ng/mL Coagulation 11/13/24 Range/Units 11:46 PT 11.1 (10.0-12.5) sec APTT 23.7 (22.0-30.0) sec CBC 11/13/24 Range/Units 11:46 WBC 9.5 (3.8-10.6) k/uL RBC 5.61 (4.30-5.90) m/uL Hgb 16.4 (13.0-17.5) gm/dL Hct 50.9 (39.0-53.0) % Plt Count 293 (150-450) k/uL Comprehensive Metabolic Panel 11/13/24 Range/Units 11:46 Sodium 137 (137-145) mmol/L Potassium 4.5 (3.5-5.1) mmol/L Chloride 101 (98-107) mmol/L Carbon Dioxide 27 (22-30) mmol/L BUN 13 (9-20) mg/dL Creatinine 0.92 (0.66-1.25) mg/dL Glucose 152 H (74-99) mg/dL Calcium 9.4 (8.4-10.2) mg/dL AST 39 (17-59) U/L ALT 53 H (4-49) U/L Alkaline Phosphatase 73 (38-126) U/L Total Protein 7.0 (6.3-8.2) g/dL Albumin 4.3 (3.5-5.0) g/dL Current Medications Generic Name Dose Route Start Last Admin Trade Name Freq PRN Reason Stop Dose Admin Heparin Sodium (Porcine) 0 unit 11/13/24 12:44 Heparin Sodium 1,000 Un/Ml (10ml Vl) IV PER PROTOCOL PRN Low PTT Protocol Heparin Sodium/Sodium Chloride 250 mls @ 10 mls/hr 11/13/24 12:45 11/13/24 13:02 25,000 unit/ Sodium Chloride IV 6.9769 units/kg/hr .Q24H SATHYA 10 mls/hr Administration Protocol 6.9769 UNITS/KG/HR Nitroglycerin/Dextrose 50 mg/ 250 mls @ 1.5 mls/hr 11/13/24 13:04 11/13/24 13:17 IV Solution IV 11/14/24 13:03 5 mcg/min .Q24H ONE 1.5 mls/hr Administration Protocol 5 MCG/MIN Morphine Sulfate 4 mg 11/13/24 13:06 Morphine Sulfate 4 Mg/Ml Syringe IV Q3HR PRN Severe Pain (Scale 7 to 10) Naloxone HCl 0.2 mg 11/13/24 13:06 Naloxone 0.4 Mg/Ml 1 Ml Vial IV Q2M PRN Opioid Reversal Intake and Output 11/12/24 11/13/24 11/13/24 22:59 06:59 14:59 Other: Weight 143.335 kg Patient Weight 11/14/24 06:59 Weight 143.335 kg 11/13/24 11:46 11/13/24 11:46
--- NOTE | 2024-11-13 13:44 | P.HPIM ---
History of Present Illness This is a pleasant 59 years old male who presents because of fatigue and generalized weakness for 2 days associated with occasional dizziness but not now no chest pain He denies specific GI/ symptoms. No headache dizziness weakness or numbness His gait was a little wobbly earlier today He denies smoking but he drinks alcohol almost every day 2 beers and possible liquor without specification and he smokes pot On admission his blood pressure was really elevated 248/138 and currently 206/119 Is mildly tachycardic. Afebrile. Labs showing elevated troponin 1.1, rest of labs: CBC, NR, BMP, LFT were unremarkable proBNP is elevated 1939 Influenza A and type B, RSV, SARS (coronavirus) are undetected EKG showing sinus rhythm possible ST elevation in the inferior left with V3-4. With sparkle changes in the lateral leads Review of Systems Review of systems CONSTITUTIONAL: No fever, no malaise, no fatigue. HEENT: No recent visual problems or hearing problems. Denied any sore throat. CARDIOVASCULAR: No orthopnea, PND, no palpitations, no syncope. PULMONARY: No shortness of breath, no cough, no hemoptysis. GASTROINTESTINAL: No diarrhea, no nausea, no vomiting, no abdominal pain. Normoactive bowel sounds. NEUROLOGICAL: No headaches, no weakness, no numbness. HEMATOLOGICAL: Denies any bleeding or petechiae. GENITOURINARY: Denies any burning micturition, frequency, or urgency. MUSCULOSKELETAL/RHEUMATOLOGICAL: Denies any joint pain, swelling, or any muscle pain. ENDOCRINE: Denies any polyuria or polydipsia. Past Medical History Past Medical History: Hypertension Additional Past Medical History / Comment(s): Past cellulitis bilateral legs History of Any Multi-Drug Resistant Organisms: None Reported Past Surgical History: Ear Surgery, Tonsillectomy Additional Past Surgical History / Comment(s): Bilateral myringotomies/tubes Past Anesthesia/Blood Transfusion Reactions: No Reported Reaction Past Psychological History: No Psychological Hx Reported Past Alcohol Use History: Occasional Past Drug Use History: Marijuana - Past Family History Father Family Medical History: Dementia Mother Family Medical History: CVA/TIA Additional Family Medical History / Comment(s): Mother is . She had TIAs. Medications and Allergies Home Medications Medication Instructions Recorded Confirmed Type No Known Home Medications 11/13/24 11/13/24 History Allergies Allergy/AdvReac Type Severity Reaction Status Date / Time No Known Allergies Allergy Verified 11/13/24 13:07 Physical Exam Vitals: Vital Signs Temp Pulse Resp BP Pulse Ox 11/13/24 12:43 109 H 18 206/119 98 11/13/24 11:59 95 18 204/136 98 11/13/24 11:09 97.6 F 94 20 248/138 98 Intake and Output 11/12/24 11/13/24 11/13/24 22:59 06:59 14:59 Other: Weight 143.335 kg -GENERAL: The patient is alert and oriented x3, not in any acute distress. Well developed, well nourished. Obese HEENT: Pupils are round and equally reacting to light. EOMI. No scleral icterus. No conjunctival pallor. Normocephalic, atraumatic. No pharyngeal erythema. No thyromegaly. CARDIOVASCULAR: S1 and S2 present. No murmurs, rubs, or gallops. PULMONARY: Chest is clear to auscultation, no wheezing , no crackles. ABDOMEN: Soft, nontender, nondistended, normoactive bowel sounds. No palpable organomegaly. MUSCULOSKELETAL: No joint swelling or deformity. EXTREMITIES: No cyanosis, clubbing, or pedal edema. NEUROLOGICAL: Gross neurological examination did not reveal any focal deficits. SKIN: No rashes. no petechiae. Results CBC & Chem 7: 11/13/24 11:46 11/13/24 11:46 Labs: Abnormal Lab Results - Last 24 Hours (Table) 11/13/24 11/13/24 Range/Units 11:46 11:46 Glucose 152 H (74-99) mg/dL ALT 53 H (4-49) U/L Troponin I 1.130 H* (0.000-0.034) ng/mL Assessment and Plan Assessment: Possible acute inferior STEMI with anterior extension, non-STEMI felt less likely. Hypertensive emergency Mild pulmonary vascular congestion and CHF Alcohol use disorder at risk of acute withdrawal morbid obesity with BMI 44.1 Plan: Heparin drip Nitroglycerin drip Aspirin Cardiology consult Pulmonary consult for possible critical care unit admission CIWA protocol and thiamine Labs and medication were reviewed.. Continue same treatment. Continue with symptomatic treatment. Resume home medication. Monitor labs and vitals. DVT and GI prophylaxis. Further recommendations as per clinical course of the patient DVT prophylaxis: heparin GI Prophylaxis: Pepcid Prognosis is guarded
[2024-11-13] MEDS ORDERED: ALPRAZolam 0.5 MG TAB PO PRN (14:19)
[2024-11-13] MEDS ORDERED: NITROGLYCERIN SL TABS 0.4 MG TAB SUBLINGUAL PRN (14:19)
[2024-11-13] MEDS ORDERED: ALPRAZolam 0.25 MG TAB PO PRN (14:19)
[2024-11-13] MEDS: ASPIRIN 325 MG TAB PO STA (14:27)
[2024-11-13] MEDS: METOPROLOL TARTRATE 25 MG TAB PO SCH (14:27)
[2024-11-13] MEDS: ATORVASTATIN 80 MG TAB PO STA (14:27)
[2024-11-13] MEDS: MIDAZOLAM 2 MG/2 ML VIAL IVP ONE (15:03)
[2024-11-13] MEDS: fentaNYL (PF) 50 MCG/ML 2 ML AMP IVP ONE (15:03)
[2024-11-13] MEDS: HEPARIN SODIUM,PORCINE (1 ML) 2,500 UNIT in SODIUM CHLORIDE 0.9% 250 ML IRRIGATION PRN (15:04)
[2024-11-13] MEDS: IV FLUID CONTINUATION 1,000 ML IV ONE (15:04)
[2024-11-13] MEDS: HEPARIN SODIUM,PORCINE 10,000 UNIT in SODIUM CHLORIDE 0.9% 1,000 ML IRRIGATION PRN (15:04)
[2024-11-13] MEDS: LIDOCAINE 1% INJ 10MG/ML (20 ML MDV) SQ ONE (15:07)
[2024-11-13] MEDS: VERAPAMIL SYRINGE (5 MG/10 ML) INTRAARTER ONE (15:09)
[2024-11-13] MEDS: SODIUM CHLORIDE 0.9% 500 ML 500 ML IV ONE (15:16)
[2024-11-13] MEDS: METOPROLOL TARTRATE 5 MG/5 ML VIAL IVP ONE (15:28)
[2024-11-13] MEDS: IOPAMIDOL-370 100ML BTL INJ ONE ×3 (15:30→16:02)
[2024-11-13] MEDS: LIDOCAINE 2% SYG (PF) 100 MG/5 ML MISCELLANE ONE (15:31)
[2024-11-13] MEDS: TICAGRELOR 90 MG TAB PO ONE (15:36)
[2024-11-13] MEDS ORDERED: RX INFO: IV CONTRAST WAS GIVEN 1 EACH MISC MISCELLANE PRN (16:23)
[2024-11-13] MEDS ORDERED: ZOLPIDEM 5 MG TAB PO PRN (16:23)
[2024-11-13] MEDS ORDERED: ATROPINE SULFATE 0.1 MG/ML 10ML SYRINGE IV PRN (16:23)
[2024-11-13] MEDS ORDERED: MAG HYDROX/AL HYDROX/SIMETH 30 ML CUP PO PRN (16:23)
--- NOTE | 2024-11-13 16:23 | P.PRCINT ---
Percutaneous Coronary Int. - Percutaneous Coronary Intervention Percutaneous Coronary Intervention: PROCEDURES PERFORMED: Left heart catheterization, bilateral coronary angiography, ultrasound guided arterial access, PCI mid LAD with a 3.0 x 15mm Xience KATHY, post dilated with a 3.25mm NC balloon, PCI mid to distal LAD with a 2.75 x 12mm Xience KATHY, IVUS LAD INDICATION: NSTEMI CONSENT:The risks, benefits and alternative therapies for the above-mentioned procedure and for both sedation/analgesia as well as necessary blood product administration, if indicated, as they pertain to this patient were discussed with the patient. The patient has indicated understanding and acceptance of the risks and procedures discussed. PROCEDURE: After the risks, benefits and alternatives of the above mentioned procedure explained in detail with the patient, informed consent was obtained. Patient was taken to the catheterization lab and prepped and draped in usual fashion. Ultrasound guidance was used to assess for arterial access. 1% lidocaine was used to anesthetize the right radial artery. A 6-Namibian sheath was placed in the right radial artery using modified Seldinger technique and ultrasound guidance. Left coronary angiography was performed with a 5-Namibian JL 4.0 catheter and right coronary angiography was performed with a 5-Namibian FR5 catheter in various views. A 5-Namibian FR5 catheter was inserted into the left ventricle and pressure measurements were obtained. Patient was having frequent polymorphic VT throughout the procedure and this improved with lidocaine and beta genevieve. The decision was made to perform PCI of LAD. A 6-Namibian CLS 4.5 guide was used to engage the left main. A 0.01 4 AM W wire was advanced distal LAD and additional 0.014 BMW wire was advanced to diagonal 1 branch. Predilation was performed with a 2.5 x 12 mm balloon. Intravascular ultrasound was performed which showed diffuse disease with more focal mid LAD stenosis as well as apical LAD lesion. Reference vessel proximally 3.0 mm. Therefore a 3.0 x 15 mm drug- eluting stent was placed in the mid LAD without any compromise to the diagonal branch. The stent was postdilated initially with a 3.0 x 12 mm noncompliant balloon and then later with a 3.25 x 8 mm noncompliant balloon as this was mildly underexpanded with a 3.0 noncompliant balloon. There was a more distal LAD lesion with what appeared to be soft plaque and therefore primary stenting was performed with a 2.75 x 12 mm drug-eluting stent. Final angiograms were performed. Per intervention there is 90% stenosis and HUONG-3 flow and postintervention there was less than 10% stenosis and HUONG-3 flow. The right radial sheath was removed and a TR band was placed with hemostasis achieved. The patient tolerated the procedure well. Patient was transported back to the post catheterization holding area in stable condition. Conscious Sedation: Patient was monitored under the direct supervision of myself for conscious sedation using Versed and fentanyl for a total duration of 57 minutes HEMODYNAMICS: Ao: 189/108 LV: 190/15, LVEDP 20 SELECTIVE CORONARY ARTERIOGRAPHY: LEFT MAIN: The left main is a large caliber vessel which bifurcates into the LAD and circumflex. There is no significant stenosis. LEFT ANTERIOR DESCENDING CORONARY ARTERY: LAD is a large caliber vessel which wraps around to the apex. There is a proximal LAD 40% stenosis, mid LAD 90% stenosis at the level of a small caliber diagonal 1 branch and a mid to distal LAD 90% stenosis. LEFT CIRCUMFLEX CORONARY ARTERY: Left circumflex is a large caliber vessel with mild 10-20% stenosis and mild luminal irregularities. The circumflex gives off the PDA and is the dominant vessel. RIGHT CORONARY ARTERY: The right coronary artery is a small to moderate caliber vessel which gives off an acute marginal branch and is nondominant. There is mid 40-50% stenosis. FINAL IMPRESSION: 1. CAD as described above including 90% mid LAD, 90% mid to distal LAD, 40% proximal LAD, 10-20% circumflex and 40-50% nondominant RCA. 2. Elevated left sided filling pressures 3. S/p PCI mid LAD with a 3.0 x 15mm Xience KATHY, post dilated with a 3.25mm NC balloon, PCI mid to distal LAD with a 2.75 x 12mm Xience KATHY PLAN: 1. Aggressive risk factor modification per most recent ACC/AHA guidelines. 2. Continue dual antiplatelets with aspirin and Brillinta for 12 months
[2024-11-13] MEDS: lisinopriL 20 MG TAB PO SCH (17:36)
--- NOTE | 2024-11-13 17:44 | CA ---
Transthoracic Echo Report Name: Myles Baum Age: 59 Gender: M : 1965 Exam Date: 11/13/2024 14:09 Exam Location: [facility] Ht (in): 71 Wt (lb): 316 Ordering Physician: Anand Mullen MD Attending/Referring Phys: Advertisement Distributor Olivia Gutierrez RDCS Procedure CPT: Indications: hypertension, ekg changes Cardiac Hx: Technical Quality: Technically difficult study Contrast 1: Definity Total Dose (mL): 1 Contrast 2: Lumason Total Dose (mL): 2 MEASUREMENTS (Male / Female) Normal Values 2D ECHO LV Diastolic Diameter PLAX 5.5 cm 4.2 - 5.9 / 3.9 - 5.3 cm LV Systolic Diameter PLAX 4.6 cm IVS Diastolic Thickness 1.8 cm 0.6 - 1.0 / 0.6 - 0.9 cm LVPW Diastolic Thickness 1.7 cm 0.6 - 1.0 / 0.6 - 0.9 cm LV Relative Wall Thickness 0.6 RV Internal Dim ED PLAX 3.6 cm LA Systolic Diameter LX 4.5 cm 3.0 - 4.0 / 2.7 - 3.8 cm LV Diastolic Volume MOD BP 131.3 cm??? 67 - 155 / 56 - 104 cm??? LV Systolic Volume MOD BP 81.6 cm??? 22 - 58 / 19 - 49 cm??? LV Ejection Fraction MOD BP 37.8 % >= 55 % LV Cardiac Index MOD BP 1842.4 cm???/min???m??? LV Diastolic Volume MOD 4C 127.8 cm??? LV Systolic Volume MOD 4C 81.0 cm??? LV Ejection Fraction MOD 4C 36.6 % LV Cardiac Index MOD 4C 1735.2 cm???/min???m??? LV Diastolic Length 4C 8.9 cm LV Systolic Length 4C 7.7 cm LV Diastolic Volume MOD 2C 120.7 cm??? LV Systolic Volume MOD 2C 78.4 cm??? LV Ejection Fraction MOD 2C 35.0 % LV Cardiac Index MOD 2C 1569.7 cm???/min???m??? LV Diastolic Length 2C 8.0 cm LV Systolic Length 2C 8.2 cm M-MODE Aortic Root Diameter MM 3.6 cm DOPPLER AV Peak Velocity 129.8 cm/s AV Peak Gradient 6.7 mmHg MV Area PHT 8.3 cm??? TR Peak Velocity 282.8 cm/s TR Peak Gradient 32.0 mmHg Right Ventricular Systolic Press 42.0 mmHg FINDINGS Left Ventricle Left ventricular ejection fraction is estimated at 35-40 %. Left ventricular cavity size normal. Severely increased septal wall thickness. Moderately increased left ventricular systolic volume. Moderately decreased left ventricular ejection fraction. Right Ventricle Mild right ventricular dilatation. Mild pulmonary hypertension. Right Atrium Normal right atrial size. No right atrial thrombus or mass seen. Left Atrium Mildly increased left atrial diameter. No left atrial thrombus or mass present. Mitral Valve Structurally normal mitral valve. No mitral stenosis, regurgitation or prolapse. Aortic Valve Aortic valve not well visualized. No aortic valve stenosis or regurgitation. Tricuspid Valve Structurally normal tricuspid valve. Mild tricuspid regurgitation. Pulmonic Valve Pulmonic valve not well visualized. Pericardium No pericardial effusion. Aorta Normal size aortic root and proximal ascending aorta. CONCLUSIONS Moderate LV systolic dysfunction with an ejection fraction of 35-40% Mild pulmonary hypertension Previewed by: Dr. Jose Manuel Kohler MD (Electronically Signed) Final Date: 13 November 2024 17:43
--- NOTE | 2024-11-13 19:23 | XR ---
EXAMINATION TYPE: XR chest 1V portable DATE OF EXAM: 11/13/2024 7:08 PM CLINICAL INDICATION:Male, 59 years old with history of SOB; [facility] COMPARISON: Chest radiographs from 11/13/2024 TECHNIQUE: XR chest 1V portable Frontal view of the chest. FINDINGS: Similar enlargement of the heart. Similar left basilar opacification. No pneumothorax. No acute osseo us abnormality. IMPRESSION: Left basilar airspace disease with similar cardiomegaly. Chest x-ray not significantly different from earlier the same day. [facility], , 11/13/2024 7:21 PM
[2024-11-13] MEDS: ATORVASTATIN 80 MG TAB PO SCH (20:07)
[2024-11-13] MEDS: SODIUM CHLORIDE 0.9% 1,000 ML in EMPTY BAG 1 BAG IV SCH (20:07)
[2024-11-13 21:02] LABS: LDL Cholesterol,Calculated 143.4 mg/dL (0.0-131.0)
[2024-11-13] MEDS ORDERED: LORazepam 1 MG TAB PO PRN ×3 (22:04)
[2024-11-13] MEDS ORDERED: LORazepam 0.5 MG TAB PO PRN (22:04)
[2024-11-13] MEDS: LORazepam 1 MG TAB PO PRN (22:16)
--- NOTE | 2024-11-14 01:22 | P.CNPUL ---
History of Present Illness Consult date: 11/14/24 Requesting physician: Jagdish Perez Reason for consult: other (Elevated troponin) Chief complaint: Weakness History of present illness: Patient is a 59-year-old male with past medical history significant for hypertension, chronic marijuana smoker, alcohol abuse drinking 4 to 5, 12 ounce beers per day. Patient does not follow with primary care provider. Does not currently take any medications. Presents to the emergency department yesterday morning with a chief complaint of severe weakness of the last 3 days. Does endorse intermittent episodes of shortness of breath, sweating, and "anxiety". Did go to an urgent care center and was advised to go to the ED because of elevated blood pressure. In the emergency department, blood pressure was severely elevated at 248/138 mmHg. He was given a dose of IV hydralazine. Patient was diagnosed with non-ST elevation ND. He did go to the [facility] Clerk yesterday and received PCI to the mid LAD with a 3.0 x 15 mm Xience KATHY, postdilated with a 3.25 mm NC balloons, PCI of mid to distal LAD with 2.75 x 12 mm Xience KATHY. Echocardiogram showing a moderately reduced systolic dysfunction with ejection fraction of 35 to 40% and mild pulmonary hypertension. CBC: WBC count 9.5, hemoglobin 16.4, platelets 293. D-dimer was elevated at 1.3. CMP: Sodium 137, potassium 4.5, chloride 101, serum bicarb 27, BUN 13, creatinine 0.92, glucose 152. Hemoglobin A1c elevated at 7.6. Lactic 1.5. LFTs unremarkable. Troponins elevated at 1.13 and 1.15 respectively. NT proBNP 1940. Total cholesterol 206 and LDLs 143. Viral screen negative for influenza, RSV, COVID. Patient currently being evaluated on the cardiac stepdown unit. Right arm TR band was deflated with good distal perfusion and no hematoma. Heparin and nitroglycerin infusions have been stopped. Patient denies ever having any chest pain. States that he did have intermittent episodes of shortness of breath, diaphoresis, and "anxiety". He has been sleeping in a reclining chair at home. Denies any orthopnea, PND. Does have some bilateral lower extremity pitting edema, 1+. Chest x-ray showing cardiomegaly, mild pulmonary vascular congestion, and basilar atelectasis. Currently on room air. Denies any shortness of breath. States he does drink alcohol, 4-5, 12 ounce beer s per day. Does not clarify last drink. Denies any history of alcohol withdrawal symptoms. Denies any history of alcohol withdrawal seizures. Denies any known esophageal varices or liver disease. He is on the CIWA protocol. Currently, patient is quite hypertensive, and his antihypertensive medications are being adjusted by cardiology. Currently on metoprolol 25 mg twice daily, lisinopril 40 mg daily. Also started on a high intensity statin. On dual antiplatelet medications including Brilinta and aspirin 81 mg. Current vitals: Temperature 98 F, heart rate 74 bpm, blood pressure 171/123 mmHg, nontachypneic, SpO2 reading 100 % on room air. Review of Systems Constitutional: Reports weakness, Denies chills, Denies fever, Denies night sweats, Denies poor appetite, Denies weight gain, Denies weight loss Ears, nose, mouth and throat: Denies epistaxis, Denies headache, Denies nasal congestion, Denies nasal discharge, Denies post-nasal drip, Denies sinus pain, Denies sinus pressure, Denies sore throat Cardiovascular: Reports leg edema, Denies chest pain, Denies lightheadedness, Denies orthopnea, Denies palpitations, Denies paroxysmal nocturnal dyspnea, Denies shortness of breath, Denies syncope Respiratory: Denies congestion, Denies cough, Denies dyspnea, Denies hemoptysis, Denies home oxygen Gastrointestinal: Denies abdominal pain, Denies change in bowel habits, Denies diarrhea, Denies nausea, Denies vomiting Genitourinary: Denies dysuria Musculoskeletal: Denies limitation of motion Integumentary: Denies rash Neurological: Denies seizures, Denies syncope Psychiatric: Denies anxiety, Denies depression Past Medical History Past Medical History: Hypertension Additional Past Medical History / Comment(s): Past cellulitis bilateral legs History of Any Multi-Drug Resistant Organisms: None Reported Past Surgical History: Ear Surgery, Heart Catheterization With Stent, Tonsillectomy Additional Past Surgical History / Comment(s): Bilateral myringotomies/tubes Past Anesthesia/Blood Transfusion Reactions: No Reported Reaction Date of Last Stent Placement:: 11/13/2024 Past Psychological History: No Psychological Hx Reported Additional Psychological History / Comment(s): Pt currently residing with his father. He is independent. Smoking Status: Former smoker Past Alcohol Use History: Occasional Additional Past Alcohol Use History / Comment(s): Pt states he is a weekend drinker and drinks less than 14 drinks a week. Past Drug Use History: Marijuana Additional Drug Use History / Comment(s): Pt smokes one joint a day. Will smoke an occasional cigar stated, "I haven't smoked a cigar in over a year." - Past Family History Father Family Medical History: Dementia Mother Family Medical History: CVA/TIA Additional Family Medical History / Comment(s): Mother is . She had TIAs. Medications and Allergies Home Medications Medication Instructions Recorded Confirmed Type No Known Home Medications 11/13/24 11/13/24 History Allergies Allergy/AdvReac Type Severity Reaction Status Date / Time No Known Allergies Allergy Verified 11/13/24 13:07 Physical Exam Vitals: Vital Signs Temp Pulse Pulse Resp BP BP Pulse Ox 11/13/24 23:19 98.0 F 74 18 171/123 100 11/13/24 21:10 77 170/112 11/13/24 20:00 97.7 F 84 18 161/111 96 11/13/24 18:30 83 162/119 96 11/13/24 18:20 16 11/13/24 18:00 77 16 159/103 96 11/13/24 17:45 78 16 160/97 96 11/13/24 17:30 78 16 154/119 97 11/13/24 17:15 97.8 F 74 16 153/101 98 11/13/24 16:33 74 16 147/94 96 11/13/24 14:36 103 H 18 197/103 98 11/13/24 14:12 103 H 18 179/108 99 11/13/24 13:42 110 H 24 199/114 11/13/24 12:43 109 H 18 206/119 98 11/13/24 11:59 95 18 204/136 98 11/13/24 11:09 97.6 F 94 20 248/138 98 Intake and Output 11/13/24 11/13/24 11/14/24 14:59 22:59 06:59 Intake Total 667 Balance 667 Intake: IV 427 Oral 240 Other: Weight 143.335 kg 143.335 kg GENERAL EXAM: Alert, morbidly obese 59-year-old male, sitting at the edge of the bed, comfortable in no apparent distress. HEAD: Normocephalic and atraumatic EYES: Normal reaction of pupils, equal size. NOSE: Clear with pink turbinates. THROAT: No erythema or exudates. NECK: No masses, no JVD. CHEST: No chest wall deformity. LUNGS: Equal air entry with no crackles, wheeze, rhonchi or dullness. On room air. No conversational dyspnea or accessory muscle use.. CVS: S1 and S2 normal with no audible murmur, regular rhythm. No extra heart sounds ABDOMEN: No hepatosplenomegaly, active bowel sounds, no guarding or rigidity. SPINE: No scoliosis or deformity SKIN: No rashes CENTRAL NERVOUS SYSTEM: No focal deficits, tone is normal in all 4 extremities. EXTREMITIES: There is no peripheral edema, clubbing, or cyanosis. Peripheral pulses are intact. Results - Laboratory Findings CBC and BMP: 11/13/24 11:46 11/13/24 11:46 PT/INR, D-dimer PT 11.1 sec (10.0-12.5) 11/13/24 11:46 INR 1.0 (<1.2) 11/13/24 11:46 D-Dimer 1.30 mg/L FEU (<0.60) H 11/13/24 11:46 Abnormal lab findings: Abnormal Labs 11/13/24 11/13/24 11/13/24 11:46 11:46 11:46 D-Dimer 1.30 H Glucose 152 H Hemoglobin A1c ALT 53 H Troponin I 1.130 H* Cholesterol LDL Cholesterol, Calc 11/13/24 11/13/24 11/13/24 11:46 13:32 22:29 D-Dimer Glucose Hemoglobin A1c 7.6 H ALT Troponin I 1.150 H* Cholesterol 206.00 H LDL Cholesterol, Calc 143.4 H - Diagnostic Findings Chest x-ray: image reviewed Assessment and Plan Assessment: Acute non-ST elevation, status post PCI to the mid LAD with a 3.0 x 15 mm Xience KATHY, postdilated with a 3.25 mm NC balloon, PCI of mid to distal LAD with 2.75 x 12 mm Xience KATHY Heart failure with reduced ejection fraction, echocardiogram showing a m oderately reduced systolic dysfunction with ejection fraction of 35 to 40% and mild pulmonary hypertension Multivessel coronary artery disease, see quality assurance qa lab analyst report Hypertensive urgency Diabetes mellitus, type II Hyperlipidemia Morbid obesity, with a BMI of 44.1 kg/m Chronic marijuana smoker Former tobacco use, occasional cigars Alcohol abuse, admits to drinking 4-5, 12 ounce beers per day Plan: Patient currently resting comfortably on room air Blood pressure remains hypertensive, Cardiology slowly adding antihypertensive medications, including metoprolol tartrate 25 mg twice daily and lisinopril 40 mg daily Continues on dual antiplatelet medications including Brilinta and aspirin Continues on high-dose statin Monitor CIWA per protocol Encouraged to avoid alcohol unless in moderation Smoking cessation counseling performed No need for ICU admission We will continue to follow as needed I have personally seen and examined the patient, performed the documentation and the assessment and plan as written. Number of minutes spent on the visit:20 Time with Patient: Greater than 30
[2024-11-14 06:59] LABS: Basophils % (A) 0 %; Eosinophils # (A) 0.1 k/uL (0-0.7); Eosinophils % (A) 1 %; HCT 47.5 % (39.0-53.0); HGB 15.2 gm/dL (13.0-17.5); Lymphocytes # (A) 1.3 k/uL (1.0-4.8); Lymphocytes % (A) 14 %; MCH 28.7 pg (25.0-35.0); MCHC 32.1 g/dL (31.0-37.0); MCV 89.4 fL (80.0-100.0); Monocytes # (A) 0.6 k/uL (0-1.0); Monocytes % (A) 6 %; Neutrophils # (A) 7.4 k/uL (1.3-7.7); Neutrophils % (A) 78 %; Platelet Count 338 k/uL (150-450); RBC 5.31 m/uL (4.30-5.90); RDW 13.3 % (11.5-15.5); WBC 9.5 k/uL (3.8-10.6)
[2024-11-14 07:21] LABS: African American GFR (CKD) >90 (>60 ml/min/1.73 sqM); Non-African American GFR(CKD) >90 (>60 ml/min/1.73 sqM)
[2024-11-14] MEDS ORDERED: DEXTROSE 50% SYRINGE 50 ML IVP PRN ×2 (08:09)
--- NOTE | 2024-11-14 08:48 | P.PN ---
Subjective This is a pleasant 59 years old male who presents because of fatigue and generalized weakness for 2 days associated with occasional dizziness but not now no chest pain He denies specific GI/ symptoms. No headache dizziness weakness or numbness His gait was a little wobbly earlier today He denies smoking but he drinks alcohol almost every day 2 beers and possible liquor without specification and he smokes pot On admission his blood pressure was really elevated 248/138 and currently 206/119 Is mildly tachycardic. Afebrile. Labs showing elevated troponin 1.1, rest of labs: CBC, NR, BMP, LFT were unremarkable proBNP is elevated 1939 Influenza A and type B, RSV, SARS (coronavirus) are undetected EKG showing sinus rhythm possible ST elevation in the inferior left with V3-4. With sparkle changes in the lateral leads 11/14 Patient awake alert He will complains from little shortness of breath no chest pain. He status post stent placement in the proximal LAD and currently placed on aspirin and Brilinta Also patient has minimal alcohol withdrawal required Ativan 2 mg last night, he feels better this morning Patient hemoglobin A1c is elevated at 7.6 and we will try to avoid metformin given his recent contrast from cardiac cath therefore we will start him on glipizide 2.5 mg. Patient counseled about quitting drinking and he agrees. Blood pressure still elevated, yesterday he received 2 doses of metoprolol 25 mg and lisinopril 40 mg, will going to increase his metoprolol to 50 mg twice daily also will give him 2 doses of IV Lasix today given his pulmonary congestion. Check labs in the morning and put the patient on sliding scale Discussed with staff Review of systems CONSTITUTIONAL: No fever, no malaise, no fatigue. HEENT: No recent visual problems or hearing problems. Denied any sore throat. CARDIOVASCULAR: No orthopnea, PND, no palpitations, no syncope. PULMONARY: No shortness of breath, no cough, no hemoptysis. GASTROINTESTINAL: No diarrhea, no nausea, no vomiting, no abdominal pain. Normoactive bowel sounds. NEUROLOGICAL: No headaches, no weakness, no numbness. HEMATOLOGICAL: Denies any bleeding or petechiae. Active Medications Generic Name Dose Route Start Last Admin Trade Name Freq PRN Reason Stop Dose Admin Al Hydroxide/Mg Hydroxide 30 ml 11/13/24 16:23 Mag Hydrox/Al Hydrox/Simeth 30 Ml Cup PO Q4HR PRN Heartburn Alprazolam 0.25 mg 11/13/24 14:19 Alprazolam 0.25 Mg Tab PO Q6HR PRN Mild Anxiety Alprazolam 0.5 mg 11/13/24 14:19 Alprazolam 0.5 Mg Tab PO Q6HR PRN Moderate Anxiety Aspirin 81 mg 11/14/24 09:00 Aspirin 81 Mg PO DAILY SATHYA Atorvastatin Calcium 80 mg 11/13/24 21:00 11/13/24 20:07 Atorvastatin 80 Mg Tab PO Not Given HS SATHYA Atropine Sulfate 0.5 mg 11/13/24 16:23 Atropine Sulfate 0.1 Mg/Ml 10ml Syringe IV ONCE PRN Symptomatic Bradycardia Dextrose/Water 25 ml 11/14/24 08:09 Dextrose 50% Syringe 50 Ml IVP PER PROTOCOL PRN Hypoglycemia Protocol Dextrose/Water 50 ml 11/14/24 08:09 Dextrose 50% Syringe 50 Ml IVP PER PROTOCOL PRN Hypoglycemia Protocol Furosemide 40 mg 11/14/24 09:00 Furosemide 10 Mg/Ml 4 Ml Vial IV 11/16/24 08:59 Q12HR [facility] Glipizide 2.5 mg 11/14/24 08:45 Glipizide 2.5 Mg Tab PO AC-BID [facility] Heparin Sodium (Porcine) 0 unit 11/13/24 12:44 Heparin Sodium 1,000 Un/Ml (10ml Vl) IV PER PROTOCOL PRN Low PTT Protocol Heparin Sodium/Sodium Chloride 250 mls @ 10 mls/hr 11/13/24 12:45 11/13/24 13:02 25,000 unit/ Sodium Chloride IV 6.9769 units/kg/hr .Q24H SATHYA 10 mls/hr Administration Protocol 6.9769 UNITS/KG/HR Nitroglycerin/Dextrose 50 mg/ 250 mls @ 1.5 mls/hr 11/13/24 13:04 11/13/24 13:17 IV Solution IV 11/14/24 13:03 5 mcg/min .Q24H ONE 1.5 mls/hr Administration Protocol 5 MCG/MIN Insulin Human Lispro 0 unit 11/14/24 12:30 Insulin Lispro (Humalog) 100 Unit/Ml 10 Ml Vl SQ ACHS SATHYA Protocol Lisinopril 40 mg 11/13/24 16:30 11/13/24 17:36 Lisinopril 20 Mg Tab PO 40 mg DAILY [facility] Administration Lorazepam 0.5 mg 11/13/24 22:04 Lorazepam 0.5 Mg Tab PO Q4HR PRN Ciwa 4 To 5 Lorazepam 1 mg 11/13/24 22:04 Lorazepam 1 Mg Tab PO Q4HR PRN Ciwa 6 To 7 Lorazepam 2 mg 11/13/24 22:04 Lorazepam 1 Mg Tab PO Q2HR PRN Ciwa 10 or greater Lorazepam 2 mg 11/13/24 22:04 11/13/24 22:16 Lorazepam 1 Mg Tab PO 2 mg Q3HR PRN Administration Ciwa 8 To 9 Lorazepam 1 mg 11/13/24 22:04 Lorazepam 1 Mg Tab PO Q1HR PRN Alcohol Withdrawal Metoprolol Tartrate 50 mg 11/14/24 09:00 Metoprolol Tartrate 50 Mg Tab PO BID [facility] Miscellaneous Information 1 each 11/13/24 16:23 Rx Info: Iv Contrast Was Given 1 Each Mis MISCELLANE 11/15/24 16:23 DAILY PRN Per Protocol Morphine Sulfate 4 mg 11/13/24 13:06 Morphine Sulfate 4 Mg/Ml Syringe IV Q3HR PRN Severe Pain (Scale 7 to 10) Naloxone HCl 0.2 mg 11/13/24 13:06 Naloxone 0.4 Mg/Ml 1 Ml Vial IV Q2M PRN Opioid Reversal Nitroglycerin 0.4 mg 11/13/24 14:19 Nitroglycerin Sl Tabs 0.4 Mg Tab SUBLINGUAL Q5M PRN Chest Pain Ticagrelor 90 mg 11/14/24 09:00 Ticagrelor 90 Mg Tab PO BID [facility] Protocol Zolpidem Tartrate 5 mg 11/13/24 16:23 Zolpidem 5 Mg Tab PO HS PRN Insomnia Objective - Vital Signs Vital signs: Vital Signs Temp 97.8 F 11/14/24 04:00 Pulse 89 11/14/24 04:00 Resp 18 11/14/24 04:00 BP 187/114 11/14/24 04:00 Pulse Ox 95 11/14/24 04:00 FiO2 Intake & Output 11/13/24 11/14/24 11/14/24 18:59 06:59 18:59 Intake Total 667 10 Balance 667 10 Weight 143.335 kg 123.5 kg Intake: IV 427 10 0.9 10 Oral 240 Other: Voiding Method Toilet # Voids 2 - Exam -GENERAL: The patient is alert and oriented x3, not in any acute distress. Well developed, well nourished. Obese HEENT: Pupils are round and equally reacting to light. EOMI. No scleral icterus. No conjunctival pallor. Normocephalic, atraumatic. No pharyngeal erythema. No thyromegaly. CARDIOVASCULAR: S1 and S2 present. No murmurs, rubs, or gallops. -PULMONARY: Chest is clear to auscultation, no wheezing , mild basal o crackles. ABDOMEN: Soft, nontender, nondistended, normoactive bowel sounds. No palpable organomegaly. MUSCULOSKELETAL: No joint swelling or deformity. EXTREMITIES: No cyanosis, clubbing, or pedal edema. NEUROLOGICAL: Gross neurological examination did not reveal any focal deficits. SKIN: No rashes. no petechiae. - Labs CBC & Chem 7: 11/14/24 05:30 11/14/24 05:30 Labs: Abnormal Lab Results - Last 24 Hours (Table) 11/13/24 11/13/24 11/13/24 Range/Units 11:46 11:46 11:46 D-Dimer 1.30 H (<0.60) mg/L FEU Glucose 152 H (74-99) mg/dL Hemoglobin A1c (<=6.0) % ALT 53 H (4-49) U/L Troponin I 1.130 H* (0.000-0.034) ng/mL Cholesterol (0.00-200.00) mg/dL LDL Cholesterol, Calc (0.0-131.0) mg/dL 11/13/24 11/13/24 11/13/24 Range/Units 11:46 13:32 22:29 D-Dimer (<0.60) mg/L FEU Glucose (74-99) mg/dL Hemoglobin A1c 7.6 H (<=6.0) % ALT (4-49) U/L Troponin I 1.150 H* (0.000-0.034) ng/mL Cholesterol 206.00 H (0.00-200.00) mg/dL LDL Cholesterol, Calc 143.4 H (0.0-131.0) mg/dL Assessment and Plan Assessment: Possible acute inferior STEMI with anterior extension, non-STEMI felt less likely. Hypertensive emergency Mild pulmonary vascular congestion and CHF Alcohol use disorder at risk of acute withdrawal morbid obesity with BMI 44.1 Plan: Aspirin and Brilinta Continue with metoprolol and lisinopril Cardiology consult Pulmonary consult Start glipizide nutrition consult and case consultant to provide glucometer CIWA protocol and thiamine Labs and medication were reviewed.. Continue same treatment. Continue with s ymptomatic treatment. Resume home medication. Monitor labs and vitals. DVT and GI prophylaxis. Further recommendations as per clinical course of the patient DVT prophylaxis: heparin GI Prophylaxis: Pepcid Prognosis is guarded
[2024-11-14] MEDS: ASPIRIN 81 MG PO SCH (10:17)
[2024-11-14] MEDS: SPIRONOLACTONE 25 MG TAB PO SCH (10:17)
[2024-11-14] MEDS: hydrALAZINE HCL 50 MG TAB PO SCH (10:17)
[2024-11-14] MEDS: FUROSEMIDE 10 MG/ML 4 ML VIAL IV SCH (10:18)
[2024-11-14] MEDS: TICAGRELOR 90 MG TAB PO SCH (10:18)
[2024-11-14] MEDS: METOPROLOL TARTRATE 50 MG TAB PO SCH (10:18)
[2024-11-14 11:22] VITALS: BMI 38.0
[2024-11-14 11:31] LABS: Glucose,Whole Blood 199 mg/dL (70-110)
[2024-11-14] MEDS: INSULIN LISPRO (HumaLOG) 100 UNIT/ML 10 mL VL SQ SCH (12:03)
--- NOTE | 2024-11-14 13:38 | P.PN ---
Subjective Progress Note Date: 11/14/24 Reason for Consult (text): NSTEMI History of present illness: This is a 59-year-old male with previous medical history of hypertension. He has not seen a PCP in 3 years. He gives history that he went to the urgent clinic because he has had trouble sleeping worse than usual for the last couple of days. He is having trouble laying flat along with generalized weakness and a little shortness of breath. He denies chest pain and no chest pressure. About a week ago, He did have episode of chest pain due to disagreement with friend but none now. No palpitations, no lightheadedness or dizziness. No syncopal episodes. No headache. 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 Patient presented to the ER with a blood pressure of 248/138. He was found to have an elevated troponin of 1.13. He has been started on heparin drip and is status post hydralazine 20 mg IV push. Nitroglycerin drip has been ordered. He has history of hypertension and was on multiple medications. He smokes marijuana but not tobacco. He drinks a couple beers per day. -EKG: Sinus rhythm with IVCD nonspecific ST changes. -Chest x-ray: Mild bilateral plate atelectasis and cardiomegaly. COPD. -Laboratory studies: CBC, INR, electrolytes and renal function within normal limits. Glucose 152. ALT 53. Troponin 1.13. proBNP 1940. Cepheid viral panel negative. -Home cardiac medications: None -Echocardiogram 03/2020: EF 55-60 11/14 Patient is seen and examined today on the cardiac stepdown unit. Yesterday, patient underwent left heart catheterization with Dr. Gary which revealed coronary artery disease with 90% mid LAD, 90% mid to distal LAD, 40% proximal LAD, 10 to 20% circumflex and 40 to 50% nondominant RCA. He had elevated left- sided filling pressures. Patient underwent PCI of the mid LAD with KATHY and postdilated with balloon, PCI of the mid to distal LAD with KATHY. Plan for aggressive risk factor modification. Patient started on aspirin and Brilinta for 12 months. Patient is off the nitroglycerin drip. Blood pressure readings are still quite elevated at 187/114, heart rate running in the 70s and 80s, pulse ox 95% on room air. Repeat blood work reveals normal CBC. Creatinine 0.76. A1c 7.6. Triglycerides 107, cholesterol 206, LDL 143. TSH 1.76. Echocardiogram reveals EF of 35 to 40% with mild pulmonary hypertension. Patient is more short of breath today, possibly due to Brilinta but will continue for now. Metoprolol was increased this morning by attending. Physical examination: Gen: This is a 59-year-old male in no acute distress. VS: reviewed HEENT: Head is atraumatic, normocephalic. Pupils equal, round. Sclerae is anicteric. NECK: Supple. No JVD. LUNGS: Clear to auscultation. No wheezes or rhonchi. No intercostal retractions. HEART: Regular rate and rhythm. No murmur. ABDOMEN: Soft No tenderness. EXTREMITIES: No pedal edema. No calf tenderness. NEUROLOGICAL: Patient is awake, alert and oriented x3. Assessment: NSTEMI status post LHC and PCI of the mid LAD and distal LAD Hypertensive emergency Diabetes mellitus type 2 Hyperlipidemia Shortness of breath and generalized weakness Marijuana use daily Daily alcohol use Elevated D-Dimer Possible EKM Plan: Continue patient on aspirin 81 mg daily, brilinta 90 mg BID Continue Metoprolol 50 mg BID, lisinopril 40 mg daily Add Aldactone 50 mg daily and hydralazine 50 mg TID Monitor blood pressure closely Plan to monitor patient overnight and possible discharge tomorrow if blood pressures are running systolics in the 160s and diastolic in the 80s and 90s. Would recommend that patient have sleep study as an outpatient Further recommendations to follow based upon clinical course Nurse practitioner note has been reviewed, I agree with documented findings and plan of care. Patient was seen and examined. Objective - Vital Signs Vital signs: Vital Signs Temp 97.8 F 11/14/24 04:00 Pulse 89 11/14/24 04:00 Resp 18 11/14/24 04:00 BP 187/114 11/14/24 04:00 Pulse Ox 95 11/14/24 04:00 FiO2 Intake & Output 11/13/24 11/14/24 11/14/24 18:59 06:59 18:59 Intake Total 667 10 Balance 667 10 Weight 143.335 kg 123.5 kg Intake: IV 427 10 0.9 10 Oral 240 Other: Voiding Method Toilet # Voids 2 - Labs CBC & Chem 7: 11/14/24 05:30 11/14/24 05:30 Labs: Abnormal Lab Results - Last 24 Hours (Table) 11/13/24 11/13/24 11/13/24 Range/Units 11:46 11:46 11:46 D-Dimer 1.30 H (<0.60) mg/L FEU Glucose 152 H (74-99) mg/dL Hemoglobin A1c (<=6.0) % ALT 53 H (4-49) U/L Troponin I 1.130 H* (0.000-0.034) ng/mL Cholesterol (0.00-200.00) mg/dL LDL Cholesterol, Calc (0.0-131.0) mg/dL 11/13/24 11/13/24 11/13/24 Range/Units 11:46 13:32 22:29 D-Dimer (<0.60) mg/L FEU Glucose (74-99) mg/dL Hemoglobin A1c 7.6 H (<=6.0) % ALT (4-49) U/L Troponin I 1.150 H* (0.000-0.034) ng/mL Cholesterol 206.00 H (0.00-200.00) mg/dL LDL Cholesterol, Calc 143.4 H (0.0-131.0) mg/dL
[2024-11-14 16:39] LABS: Glucose,Whole Blood 123 mg/dL (70-110)
[2024-11-14 19:42] LABS: Glucose,Whole Blood 132 mg/dL (70-110)
[2024-11-15 06:09] LABS: Glucose,Whole Blood 160 mg/dL (70-110)
[2024-11-15 07:17] LABS: African American GFR (CKD) >90 (>60 ml/min/1.73 sqM); Anion Gap 9 mmol/L; Blood Urea Nitrogen 19 mg/dL (9-20); Calcium 8.8 mg/dL (8.4-10.2); Carbon Dioxide 26 mmol/L (22-30); Chloride 100 mmol/L (98-107); Glucose 138 mg/dL (74-99); Magnesium 2.1 mg/dL (1.6-2.3); Non-African American GFR(CKD) 88 (>60 ml/min/1.73 sqM); Potassium 4.3 mmol/L (3.5-5.1); Sodium 135 mmol/L (137-145)
[2024-11-15 08:43] VITALS: RESP 14
[2024-11-15 11:16] LABS: Glucose,Whole Blood 114 mg/dL (70-110)
[2024-11-15 11:48] VITALS: BP 143/95; PULSE 63; TEMP 98.1
[2024-11-15] MEDS: hydrALAZINE HCL 50 MG TAB PO STA (11:48)
--- NOTE | 2024-11-15 15:19 | P.PN ---
Subjective Progress Note Date: 11/15/24 Reason for Consult (text): NSTEMI History of present illness: This is a 59-year-old male with previous medical history of hypertension. He has not seen a PCP in 3 years. He gives history that he went to the urgent clinic because he has had trouble sleeping worse than usual for the last couple of days. He is having trouble laying flat along with generalized weakness and a little shortness of breath. He denies chest pain and no chest pressure. About a week ago, He did have episode of chest pain due to disagreement with friend but none now. No palpitations, no lightheadedness or dizziness. No syncopal episodes. No headache. 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 Patient presented to the ER with a blood pressure of 248/138. He was found to have an elevated troponin of 1.13. He has been started on heparin drip and is status post hydralazine 20 mg IV push. Nitroglycerin drip has been ordered. He has history of hypertension and was on multiple medications. He smokes marijuana but not tobacco. He drinks a couple beers per day. -EKG: Sinus rhythm with IVCD nonspecific ST changes. -Chest x-ray: Mild bilateral plate atelectasis and cardiomegaly. COPD. -Laboratory studies: CBC, INR, electrolytes and renal function within normal limits. Glucose 152. ALT 53. Troponin 1.13. proBNP 1940. Cepheid viral panel negative. -Home cardiac medications: None -Echocardiogram 03/2020: EF 55-60 11/14 Patient is seen and examined today on the cardiac stepdown unit. Yesterday, patient underwent left heart catheterization with Dr. Gary which revealed coronary artery disease with 90% mid LAD, 90% mid to distal LAD, 40% proximal LAD, 10 to 20% circumflex and 40 to 50% nondominant RCA. He had elevated left- sided filling pressures. Patient underwent PCI of the mid LAD with KATHY and postdilated with balloon, PCI of the mid to distal LAD with KATHY. Plan for aggressive risk factor modification. Patient started on aspirin and Brilinta for 12 months. Patient is off the nitroglycerin drip. Blood pressure readings are still quite elevated at 187/114, heart rate running in the 70s and 80s, pulse ox 95% on room air. Repeat blood work reveals normal CBC. Creatinine 0.76. A1c 7.6. Triglycerides 107, cholesterol 206, LDL 143. TSH 1.76. Echocardiogram reveals EF of 35 to 40% with mild pulmonary hypertension. Patient is more short of breath today, possibly due to Brilinta but will continue for now. Metoprolol was increased this morning by attending. 11/15 Patient is seen and examined. Blood pressure 153/94, heart rate 69, pulse ox 96% on room air. Overall blood pressure readings are improved. He states his breathing is better today. Repeat blood work reveals BUN 19 and creatinine 0.94. Right wrist shows no sign of hematoma or bleeding. Physical examination: Gen: This is a 59-year-old male in no acute distress. VS: reviewed HEENT: Head is atraumatic, normocephalic. Pupils equal, round. Sclerae is anicteric. NECK: Supple. No JVD. LUNGS: Clear to auscultation. No wheezes or rhonchi. No intercostal retractions. HEART: Regular rate and rhythm. No murmur. ABDOMEN: Soft No tenderness. EXTREMITIES: No pedal edema. No calf tenderness. NEUROLOGICAL: Patient is awake, alert and oriented x3. Assessment: NSTEMI status post LHC and PCI of the mid LAD and distal LAD Hypertensive emergency Diabetes mellitus type 2 Hyperlipidemia Shortness of breath and generalized weakness Marijuana use daily Daily alcohol use Elevated D-Dimer Possible KEM Plan: Continue patient on aspirin 81 mg daily, brilinta 90 mg BID Continue Metoprolol 50 mg BID, lisinopril 40 mg daily Continue Aldactone 50 mg daily and hydralazine increased to 100 mg TID Patient is cleared for discharge from cardiology and may follow-up in the office in 1 to [address] Gary. Nurse practitioner note has been reviewed, I agree with documented findings and plan of care. Patient was seen and examined. Objective - Vital Signs Vital signs: Vital Signs Temp 98 F 11/15/24 08:41 Pulse 69 11/15/24 08:41 Resp 14 11/15/24 08:41 BP 153/94 11/15/24 08:41 Pulse Ox 96 11/15/24 08:41 FiO2 Intake & Output 11/14/24 11/15/24 11/15/24 18:59 06:59 18:59 Intake Total 720 20 240 Output Total 1400 Balance -680 20 240 Weight 123.5 kg 123.5 kg Intake: IV 20 Invasive Line 1 10 Invasive Line 2 10 Oral 720 240 Output: Urine 1400 Other: Voiding Method Toilet # Voids 5 - Labs CBC & Chem 7: 11/14/24 05:30 11/15/24 05:31 Labs: Abnormal Lab Results - Last 24 Hours (Table) 11/14/24 11/14/24 11/14/24 Range/Units 11:30 16:37 19:41 Sodium (137-145) mmol/L Glucose (74-99) mg/dL POC Glucose (mg/dL) 199 H 123 H 132 H (70-110) mg/dL 11/15/24 11/15/24 Range/Units 05:31 06:07 Sodium 135 L (137-145) mmol/L Glucose 138 H (74-99) mg/dL POC Glucose (mg/dL) 160 H (70-110) mg/dL
[2024-11-15] MEDS ORDERED: hydrALAZINE HCL 50 MG TAB PO SCH (16:00)
--- NOTE | 2024-11-15 23:33 | P.DS ---
Providers Date of admission: 11/13/24 14:18 Attending physician: Maciej Carnes MD Consults: 11/13/24 13:45 Consult Physician Stat Consulting Provider: Todd Gary Consult Reason/Comments: Elevated troponin Do you want consulting provider notified?: Already Contacted Consult Physician Stat Consulting Provider: Sarah Negron Consult Reason/Comments: Elevated troponin Do you want consulting provider notified?: Already Contacted 11/13/24 16:23 Consult Physician Routine Consulting Provider: [facility] Consult Reason/Comments: Post Interventional Patient Do you want consulting provider notified?: Already Contacted Primary care physician: Stated None Hospital Course: Diagnoses: Possible acute inferior STEMI with anterior extension, non-STEMI felt less likely. Status post emergent cardiac cath and PCI to LAD. Hypertensive emergency. Controlled upon discharge Mild pulmonary vascular congestion and CHF with reduced ejection fraction 35 to 40% New onset diabetes mellitus, patient informed and started on glipizide and he agrees Alcohol use disorder at risk of acute withdrawal morbid obesity with BMI 44.1 Hospital course: This is a pleasant 59 years old male who presents because of fatigue and generalized weakness for 2 days associated with occasional dizziness but not now no chest pain Patient was found to be having ischemic cardiac event thought secondary to ST CANDE, he underwent emergent cardiac cath, and he is status post stent placement in the proximal LAD and currently placed on aspirin and Brilinta. Risk including but not limited to bleeding into the brain are explained to the patient and he verbalized understanding and acceptance. Patient blood pressure was controlled after placing several antihypertensive medication including lisinopril 40 mg, metoprolol 50 mg, hydralazine 100 mg 3 times daily and Aldactone 50 mg. Patient denies chest pain or dyspnea or any other new complaint upon discharge. Patient also with unknown alcohol use disorder with no signs symptoms of alcohol withdrawal on discharge. Also patient was counseled to quit and he agrees. Patient was found to have elevated hemoglobin A1c at 7.6% and he was informed of his diagnosis of diabetes. Nutrition consult was requested and patient was placed on small dose of glipizide 2.5 mg twice daily which helped control his sugar. Patient was counseled against use of alcohol while he is on diabetes medication. Also patient was educated about signs symptoms of hypoglycemia and how to manage hypo or hyperglycemia and he verbalized understanding acceptance again.. manager sales training was consulted to provide him with a glucometer. Patient was eager to go home today. He denies any other new complaint. I discussed the case with cardiology team and Dr. Gary clearing for discharge. Problems and management plan were discussed with the patient and he verbalized understanding and acceptance Patient was found stable and can be discharged home in guarded prognosis however he needs follow-up as an outpatient. Patient was instructed to follow up with PCP within one week and patient agrees Patient was instructed to call his health insurance provider to find a nearby PCP and call make appointment in 1 week and he agrees. Patient was instructed to follow-up with chief fishery division Dr. Gary in 1 to 2 weeks and he agrees. Also patient was asked to follow-up with leather stitcher Kinga Cesar if he thinks he needs to. Physical exam -Gen: patient is a AAOx3, no distress. Obese CVS: S1-S2, RRR, no murmur Lungs: B/L CTA, no wheezing Abdomen: soft, no distention, no tenderness, positive bowel sounds Extremity: no leg edema or induration Time spent more than 35 minutes Patient Condition at Discharge: Serious Plan - Discharge Summary Discharge Rx Participant: Yes New Discharge Prescriptions: New Ticagrelor [Brilinta] 90 mg PO BID #60 tab glipiZIDE [Glucotrol] 2.5 mg PO AC-BID #60 tab hydrALAZINE HCL [Apresoline] 100 mg PO TID #90 tab Spironolactone [Aldactone] 50 mg PO DAILY #60 tab Aspirin 81 mg PO DAILY #30 tab Atorvastatin [Lipitor] 80 mg PO HS #30 tab Metoprolol Tartrate [Lopressor] 50 mg PO BID #60 tab lisinopriL [Zestril] 40 mg PO DAILY #60 tab Discharge Medication List Aspirin 81 mg PO DAILY #30 tab 11/15/24 [Rx] Atorvastatin [Lipitor] 80 mg PO HS #30 tab 11/15/24 [Rx] Metoprolol Tartrate [Lopressor] 50 mg PO BID #60 tab 11/15/24 [Rx] Spironolactone [Aldactone] 50 mg PO DAILY #60 tab 11/15/24 [Rx] Ticagrelor [Brilinta] 90 mg PO BID #60 tab 11/15/24 [Rx] glipiZIDE [Glucotrol] 2.5 mg PO AC-BID #60 tab 11/15/24 [Rx] hydrALAZINE HCL [Apresoline] 100 mg PO TID #90 tab 11/15/24 [Rx] lisinopriL [Zestril] 40 mg PO DAILY #60 tab 11/15/24 [Rx] Follow up Appointment(s)/Referral(s): Austin Cesar MD [REFERRING] - 2 Weeks (leather stitcher for your diabetes mellitus ) Todd Gary DO [STAFF PHYSICIAN] - 1 Week (Patient to make appointment on own time) None,Stated [Primary Care Provider] - 1-2 days (Educated patient on the importance of a primary caregiver ) Patient Instructions/Handouts: Acute Coronary Syndrome (GEN), Hypertensive Crisis (GEN) Activity/Diet/Wound Care/Special Instructions: heart healthy diet , low carbohydrate 1800 k amalia per day diet activity is restricted till you see your doctor we recommend to check your glucose four times per day , before each meal and at bed time, keep the results in a log book and bring it to your doctor appointment if your glucose is less than 70 or more than 400 them come to emergency room, call 911 Discharge Disposition: HOME SELF-CARE
--- NOTE | 2024-11-16 18:56 | CDI ---
Documentation Clarification Form Date: 11/16/2024 06:38:16 PM From: Denise Gutierrez Phone: Admit Date: 11/13/2024 02:18:00 PM Patient Name: Myles Baum Visit Number: [id number] Discharge Date: 11/15/2024 12:48:00 PM ATTENTION: The Clinical Documentation Specialists (CDI) and [facility] Coding Staff appreciate your assistance in clarifying documentation. Please respond to the clarification below the line at the bottom and electronically sign. The CDI & [facility] Coding staff will review the response and follow-up if needed. Please note: Queries are made part of the Legal Health Record. If you have any questions, please contact the author of this message via ITS. Doctor/Provider: Maciej E Sheet Your patient has an A1C of 7.6. Please clarify if there is an additional diagnosis and/or clinical significance related to this value. History/Risk Factors: 59yo M, acute inferior STEMIwith anterior extension,HTN emergency, CSHF, DMII, ETOH abuse, PHTN, morbid obesityBMI 44.1 Clinical indicators: Glucose: 11/13 154 11/15 123-199 Treatment: started on glipizide and he agrees; Insulin Human Lispro 0 unit; Insulin Lispro (Humalog) 100 Unit/Ml 10 Ml Vl SQ Is there an additional diagnosis and/or clinical significance related to the above lab result/information? [ x ] Diabetes mellitus II with hyperglycemia, new diagnosis [ ] Diabetes mellitus II no complications [ ] No additional diagnosis/Not clinically significant [ ] Other, please specify [ ] Unable to determine (Template Last Revised: October 2020) MTDD
== END 2024-11-15 12:48 | disposition home or self-care (01) | DRG 321 ==
LOC: EC 11:00 → 2SICU 14:18 → 3SCARD 16:20
PROVIDERS: ADMIT Internal Medicine; ATTEND Internal Medicine
PROC: B240ZZ3 Ultrasonography of Single Coronary Artery, Intravascular (ICD-10-PCS; 2024-11-13)
PROC: 027035Z Dilation of Coronary Artery, One Artery with Two Drug-eluting Intraluminal Devices, Percutaneous Approach (ICD-10-PCS; principal; 2024-11-13 17:15)
PROC: 4A023N7 Measurement of Cardiac Sampling and Pressure, Left Heart, Percutaneous Approach (ICD-10-PCS; 2024-11-13 17:15)
PROC: B2111ZZ Fluoroscopy of Multiple Coronary Arteries using Low Osmolar Contrast (ICD-10-PCS; 2024-11-13 17:15)
DX: I21.19 ST elevation (STEMI) myocardial infarction involving other coronary artery of inferior wall (principal); I50.21 Acute systolic (congestive) heart failure; I16.1 Hypertensive emergency; I27.22 Pulmonary hypertension due to left heart disease; Z68.41 Body mass index [BMI] 40.0-44.9, adult; I11.0 Hypertensive heart disease with heart failure; J44.9 Chronic obstructive pulmonary disease, unspecified; E11.65 Type 2 diabetes mellitus with hyperglycemia; F10.10 Alcohol abuse, uncomplicated; I47.29 Other ventricular tachycardia; E66.01 Morbid (severe) obesity due to excess calories; I25.10 Atherosclerotic heart disease of native coronary artery without angina pectoris; G47.33 Obstructive sleep apnea (adult) (pediatric); E78.5 Hyperlipidemia, unspecified; Z63.6 Dependent relative needing care at home; Z72.820 Sleep deprivation; Z87.891 Personal history of nicotine dependence
CPT/HCPCS: 36415; 71045; 71046; 80048; 80053; 80061; 82565; 83036; 83605; 83735; 83880; 84443; 84484; 85025; 85379; 85610; 85730; 87636; 92978; 93005; 93306; 93458; 96365; 96366; 96368; 96375; 99285